=== PATIENT | male | born 1945 | race Caucasian/White ===

== ENCOUNTER 2016-12-08 17:11 | Emergency (ER) | payer OTHER ==
[~2016-12-08] VITALS: Ht 172.7 cm; Wt 114.0 kg
[2016-12-08 17:16] VITALS: TEMP 36.6
[2016-12-08] MEDS ORDERED: SODIUM CHLORIDE 0.9% 1000ML 1,000 ML IV SCH (17:23)
--- NOTE | 2016-12-08 17:47 | EMERGENCY ROOM VISIT NOTE ---
History Report prepared by Isabella: Latrell Kent Under the Supervision of: Dr. Sydney Booker M.D. First contact with patient: 17:23 Chief Complaint: STROKE SYMPTOMS Stated Complaint: STROKE SYMPTOMS Nursing Triage Summary: "I think sometime during the night night I may have had a stroke. I' ve felt perfectly fine since then." Reports slurred speak and left facial droop. Notes today his left eye is watery. Also reports left sided neck pain for 4 months. History of Present Illness The patient is a 71 year old male who presents to the Emergency Room with complaints of constant left sided facial numbness beginning two days prior to arrival. He states he woke up two days ago with left sided facial drooping. The patient associates left eye watering with today's symptoms. He denies weakness in his extremities. The patient also complains of persistent left sided neck pain beginning four months prior to arrival. He states he is scheduled to see his doctor tomorrow for those symptoms. The patient notes it feels like a stiff neck, as if he slept on it wrong. He denies trouble walking. The patient notes he has a history of hypertension. He denies a history of diabetes and heart disease. The patient denies being sick recently. Source of History: patient Onset: two days INVENTORY MANAGER Position: head (left side of face) Quality: numbness Timing: constant Associated Symptoms: + neck pain (left sided) Note: Associated symptoms: left sided facial drooping, left eye watering. Review of Systems See HPI for pertinent positives & negatives. A total of 10 systems reviewed and were otherwise negative. Past Medical & Surgical Medical Problems: (1) Hypertension Family History Patient reports no known family medical history. Social History Smoking Status: Never Smoker Marital Status: Housing Status: lives with significant other Occupation Status: employed Current/Historical Medications Scheduled Aspirin (Aspirin Ec), 81 MG PO DAILY Gupvbdnclsj-Euqlounmprt-Cge C- (Glucosamine 1500 Complex), Unknown Dose PO DAILY Lisinopril (Zestril), 20 MG PO QAM Omeprazole (Prilosec), 40 MG PO DAILY Prednisone (Prednisone), 40 MG PO DAILY Valacyclovir Hcl (Valtrex), 1 GM PO TID Scheduled PRN Ibuprofen (Advil), 2 CAP PO WK PRN for KNEE PAIN Allergies Coded Allergies: No Known Allergies (Unverified , 12/08/16) Physical Exam Vital Signs Date Time Temp Pulse Resp B/P Pulse Ox O2 Delivery O2 Flow Rate FiO2 12/08/16 21:55 71 18 142/87 94 12/08/16 21:17 71 18 142/87 94 Room Air 12/08/16 18:54 84 16 150/93 94 Room Air 12/08/16 18:30 86 18 114/72 94 Room Air 12/08/16 18:05 89 18 112/75 96 Room Air 12/08/16 17:57 94 Room Air 12/08/16 17:35 85 16 108/72 95 Room Air 12/08/16 17:16 36.6 88 16 110/73 94 Room Air Physical Exam Vital signs reviewed. General: Well-appearing male, in no distress. Obese. HEENT: Left facial droop, forehead included. No scleral icterus, PERRLA, neck supple. Atraumatic. Cardiovascular: Regular rate and rhythm, no extra sounds. Pulmonary: Clear to auscultation bilaterally, normal work of breathing. Abdomen: Soft, nontender, nondistended, positive bowel sounds. Musculoskeletal: Atraumatic, no peripheral edema. Neurologic: Patient awake alert and oriented x 3, full strength in all 4 extremities. Cerebellar exam is intact. Negative Romberg. Ambulates without difficulty. Skin: Warm, dry, no rash Medical Decision & Procedures ER Provider Diagnostic Interpretation: X-ray results as stated below per my interpretation and radiologist interpretation. Other radiology results as stated below per my review and radiologist interpretation: CHEST ONE VIEW PORTABLE HISTORY: Stroke symptoms. COMPARISON: None. FINDINGS: No pneumothorax. No pleural effusions. There is marked elevation the left hemidiaphragm. A few linear densities the left lung base consistent with subsegmental atelectasis. The lungs are otherwise clear. The heart is borderline enlarged. Old, healed left clavicle fracture. IMPRESSION: 1. Marked elevation of the left hemidiaphragm. This is likely chronic. Comparison to old studies would be helpful to assess stability. 2. Borderline enlargement of the cardiac silhouette. Electronically signed by: Yuri Dos Santos M.D. 12/08/2016 6:[address] CT DOSE: 687.98 mGy.cm HISTORY: Stroke symptoms. TECHNIQUE: Multiaxial CT images of the head were performed without the use of intravenous contrast. Automated exposure control was utilized for this study. Comparison: None. Findings: The paranasal sinuses and mastoid air cells are clear. The calvarium and skull base are intact. The ventricles and sulci are within normal limits. There is no mass, hematoma, midline shift, or acute infarct. Impression: No acute intracranial abnormality. Electronically signed by: Yuri Dos Santos M.D. 12/08/2016 6:53 PM BILATERAL CAROTID DOPPLER STUDY HISTORY: Left neck pain and HTN, L facial droop COMPARISON: None. TECHNIQUE: Real-time, grayscale, and color Doppler sonography of the carotid arteries was performed. Imaging reviewed in the transverse and longitudinal planes. All measurements were calculated based on NASCET criteria. FINDINGS: Antegrade flow is seen in the bilateral vertebral arteries. The brachial pressures are asymmetric measuring 160/106 and the right and 132/84 on the left. However, the subclavian and velocities are within normal limits. Mild calcified plaque within the bilateral carotid bifurcations. The peak systolic velocity within the right ICA is 48 cm/s. The right systolic ratio is 0.8. The peak systolic velocity within the left ICA is 58 cm/s. The left systolic ratio is 0.6. IMPRESSION: No hemodynamically significant stenosis seen within the carotid arteries. Electronically signed by: Yuri Dos Santos M.D. 12/08/2016 9:34 PM Laboratory Results 12/08/16 17:55 Red Blood Count 4.90, Mean Corpuscular Volume 92.2, Mean Corpuscular Hemoglobin 31.6, Mean Corpuscular Hemoglobin Concent 34.3, Mean Platelet Volume 10.7, Neutrophils (%) (Auto) 57.3, Lymphocytes (%) (Auto) 30.1, Monocytes (%) (Auto) 9.3, Eosinophils (%) (Auto) 2.7, Basophils (%) (Auto) 0.3, Neutrophils # (Auto) 5.22, Lymphocytes # (Auto) 2.75, Monocytes # (Auto) 0.85, Eosinophils # (Auto) 0.25, Basophils # (Auto) 0.03 12/08/16 17:55 Test 12/08/16 17:48 12/08/16 17:55 12/08/16 20:40 Bedside Glucose 115 mg/dl (70-99) White Blood Count 9.13 K/uL (4.8-10.8) Red Blood Count 4.90 M/uL (4.7-6.1) Hemoglobin 15.5 g/dL (14.0-18.0) Hematocrit 45.2 % (42-52) Mean Corpuscular Volume 92.2 fL (80-100) Mean Corpuscular Hemoglobin 31.6 pg (25-34) Mean Corpuscular Hemoglobin Concent 34.3 g/dl (32-36) Platelet Count 148 K/uL (130-400) Mean Platelet Volume 10.7 fL (7.4-10.4) Neutrophils (%) (Auto) 57.3 % Lymphocytes (%) (Auto) 30.1 % Monocytes (%) (Auto) 9.3 % Eosinophils (%) (Auto) 2.7 % Basophils (%) (Auto) 0.3 % Neutrophils # (Auto) 5.22 K/uL (1.4-6.5) Lymphocytes # (Auto) 2.75 K/uL (1.2-3.4) Monocytes # (Auto) 0.85 K/uL (0.11-0.59) Eosinophils # (Auto) 0.25 K/uL (0-0.5) Basophils # (Auto) 0.03 K/uL (0-0.2) RDW Standard Deviation 46.3 fL (36.4-46.3) RDW Coefficient of Variation 13.8 % (11.5-14.5) Immature Granulocyte % (Auto) 0.3 % Immature Granulocyte # (Auto) 0.03 K/uL (0.00-0.02) Prothrombin Time 11.4 SECONDS (9.0-12.0) Prothromb Time International Ratio 1.1 (0.9-1.1) Activated Partial Thromboplast Time 25.6 SECONDS (21.0-31.0) Partial Thromboplastin Ratio 1.0 Anion Gap 10.0 mmol/L (3-11) Est Creatinine Clear Calc Drug Dose 57.0 ml/min Estimated GFR () 54.3 Estimated GFR (Non- 46.8 BUN/Creatinine Ratio 16.2 (10-20) Calcium Level 8.8 mg/dl (8.5-10.1) Total Creatine Kinase 106 U/L (39-308) Creatine Kinase MB 1.3 ng/ml (0.5-3.6) Creatine Kinase MB Ratio 1.2 (0-3.0) Troponin I < 0.015 ng/ml (0-0.045) Lyme Disease IgG Antibody NEG (NEG) Lyme Disease IgM Antibody NEG (NEG) Urine Color YELLOW Urine Appearance CLEAR (CLEAR) Urine pH 6.0 (4.5-7.5) Urine Specific White 1.026 (1.000-1.030) Urine Protein NEG (NEG) Urine Glucose (UA) NEG (NEG) Urine Ketones TRACE (NEG) Urine Occult Blood TRACE (NEG) Urine Nitrite NEG (NEG) Urine Bilirubin NEG (NEG) Urine Urobilinogen NEG (NEG) Urine Leukocyte Esterase NEG (NEG) Urine WBC (Auto) 1-5 /hpf (0-5) Urine RBC (Auto) 0-4 /hpf (0-4) Urine Hyaline Casts (Auto) 1-5 /lpf (0-5) Urine Epithelial Cells (Auto) 5-10 /lpf (0-5) Urine Bacteria (Auto) NEG (NEG) Laboratory results per my review. Medications Administered Medications (Trade) Dose Ordered Sig/Marianela Route Start Time Stop Time Status Last Admin Dose Admin Sodium Chloride (Nss 1000ml) 1,000 ml @ 50 mls/hr Q20H IV 12/08/16 17:23 12/08/16 22:17 DC 12/08/16 17:58 50 MLS/HR Prednisone (PredniSONE TAB) 60 mg NOW STAT PO 12/08/16 20:32 12/08/16 20:34 DC 12/08/16 21:21 60 MG Valacyclovir HCl (Valtrex Tab) 1,000 mg NOW ONCE PO 12/08/16 20:45 12/08/16 20:46 DC 12/08/16 21:21 1,000 MG ECG Indication: other (facial numbness) Rate (beats per minute): 71 Rhythm: normal sinus Findings: nonspecific-ST abn, no acute ischemic change, no ectopy, other (left anterior fascicular block) ED Course 1720: Past medical records reviewed. The patient was evaluated in room B3B. A complete history and physical examination was performed. 1722: Ordered Sodium Chloride 1,000 ml @ 50 mls/hr IV. 2031: Ordered Prednisone 60 mg PO. 2044: Ordered Valtrex Tab 1,000 mg PO. 2150: Upon reevaluation, the patient appeared to have improvement of his symptoms. I discussed findings with him. He verbalized agreement of the treatment plan. The patient was discharged home. Medical Decision Etiologies such as Mix's Palsy, metabolic, infection, hypo/hyperglycemia, electrolyte abnormalities, cardiac sources, intracerebral event, toxicologic, neurologic, as well as others were entertained. This patient was evaluated and appeared to be in no significant distress. IV access was obtained and laboratory work was drawn. The patient was placed on the telemetry monitor and found to be in a normal sinus rhythm. Physical examination is consistent with a Mix's palsy however the patient has complaints of left-sided neck pain and several risk factors. CT scan of the head was performed and is negative for acute pathology. Ultrasound of the carotids reveals no significant stenosis. Lyme titers are negative. Patient was given 60 mg of prednisone, 1000 mg of Valtrex for 1 week. He will follow- up with his physician for reevaluation and return to the ER for worsening of symptoms or any medical concerns. Impression Primary Impression: Mix's palsy Scribe Attestation The scribe's documentation has been prepared under my direction and personally reviewed by me in its entirety. I confirm that the note above accurately reflects all work, treatment, procedures, and medical decision making performed by me. Departure Information Dispostion Home / Self-Care Prescriptions Valacyclovir Hcl (VALTREX) 1 Gm Tab 1 GM PO TID, #21 TAB Prov: Sydney Booker M.D. 12/08/16 Prednisone (Prednisone) 20 Mg Tab 40 MG PO DAILY, #8 TAB Prov: Sydney Booker M.D. 12/08/16 Referrals No Doctor, Assigned (PCP) Forms HOME CARE DOCUMENTATION FORM, IMPORTANT VISIT INFORMATION Patient Instructions My [facility] Additional Instructions Diagnosis: Mix's palsy Use artificial tears every hour while awake. Use the artificial tears ointment at night. Apply piece of tape over the left eyelid at night to help prevent corneal abrasion or ulceration. Prednisone 60 mg daily for 7 days. Valtrex 1000 mg 3 times daily for 7 days. Follow-up with your physician this week for reevaluation. Return to the ER for worsening of symptoms or any medical concerns.
[2016-12-08 17:56] VITALS: Ht 172.7 cm; Wt 114.0 kg
[2016-12-08 17:57] VITALS: O2SAT 94
[2016-12-08 18:09] LABS: BASO % 0.3 %; BASO ABS # 0.03 K/uL (0-0.2); COMPLETE YES; EOS % 2.7 %; HEMATOCRIT 45.2 % (42-52); IG% 0.3 %; LYMPH % 30.1 %; LYMPH ABS # 2.75 K/uL (1.2-3.4); MEAN CELL VOLUME 92.2 fL (80-100); MEAN CORPUSCULAR HEMOGLOBIN 31.6 pg (25-34); MEAN CORPUSCULAR HGB CONC 34.3 g/dl (32-36); MEAN PLATELET VOLUME 10.7 fL (7.4-10.4); MONO % 9.3 %; NEUT % 57.3 %; PLATELET COUNT 148 K/uL (130-400); WHITE BLOOD COUNT 9.13 K/uL (4.8-10.8)
[2016-12-08] MEDS ORDERED: ASPI81TA28 PO (18:11)
[2016-12-08] MEDS ORDERED: PRLSR20 PO (18:11)
[2016-12-08] MEDS ORDERED: GLUC15002 PO (18:11)
[2016-12-08] MEDS ORDERED: IBUP200C14 PO (18:11)
[2016-12-08] MEDS ORDERED: LISI-725 PO (18:11)
--- NOTE | 2016-12-08 18:16 | DIAGNOSTIC IMAGING REPORT ---
CHEST ONE VIEW PORTABLE HISTORY: Stroke symptoms. COMPARISON: None. FINDINGS: No pneumothorax. No pleural effusions. There is marked elevation the left hemidiaphragm. A few linear densities the left lung base consistent with subsegmental atelectasis. The lungs are otherwise clear. The heart is borderline enlarged. Old, healed left clavicle fracture. IMPRESSION: 1. Marked elevation of the left hemidiaphragm. This is likely chronic. Comparison to old studies would be helpful to assess stability. 2. Borderline enlargement of the cardiac silhouette. Electronically signed by: Yuri Dos Santos M.D. 12/08/2016 6:15 PM Dictated Date/Time: 12/08/2016 6:14 PM
[2016-12-08 18:18] LABS: INR 1.1 (0.9-1.1); PROTHROMBIN TIME (PATIENT) 11.4 SECONDS (9.0-12.0)
[2016-12-08 18:26] LABS: BLOOD UREA NITROGEN 24 mg/dl (7-18); BUN/CREATININE RATIO 16.2 (10-20); CALCIUM 8.8 mg/dl (8.5-10.1); CARBON DIOXIDE 25 mmol/L (21-32); CHLORIDE 109 mmol/L (98-107); GLUCOSE 107 mg/dl (70-99); POTASSIUM 4.3 mmol/L (3.5-5.1); SODIUM 144 mmol/L (136-145)
[2016-12-08 18:31] LABS: CKMB/CK RATIO 1.2 (0-3.0)
--- NOTE | 2016-12-08 18:55 | DIAGNOSTIC IMAGING REPORT ---
HEAD CT NONCONTRAST CT DOSE: 687.98 mGy.cm HISTORY: Stroke symptoms. TECHNIQUE: Multiaxial CT images of the head were performed without the use of intravenous contrast. Automated exposure control was utilized for this study. Comparison: None. Findings: The paranasal sinuses and mastoid air cells are clear. The calvarium and skull base are intact. The ventricles and sulci are within normal limits. There is no mass, hematoma, midline shift, or acute infarct. Impression: No acute intracranial abnormality. Electronically signed by: Yuri Dos Santos M.D. 12/08/2016 6:53 PM Dictated Date/Time: 12/08/2016 6:40 PM
[2016-12-08 19:44] LABS: LYME DISEASE AB IGG NEG (NEG); LYME DISEASE AB IGM NEG (NEG)
[2016-12-08] MEDS ORDERED: VALA1TAB31 PO (20:17)
[2016-12-08] MEDS ORDERED: PRED20TA PO (20:17)
[2016-12-08 21:31] LABS: URINE APPEARANCE CLEAR (CLEAR); URINE BILIRUBIN NEG (NEG); URINE COLOR YELLOW; URINE NITRITE NEG (NEG); URINE SPECIFIC GRAVITY 1.026 (1.000-1.030); UROBILINOGEN NEG (NEG); ZZUR CULT IF INDIC CLEAN CATCH NO
[2016-12-08 21:32] LABS: MANUAL MICROSCOPIC REQUIRED? NO; REVIEW REQ? NO
--- NOTE | 2016-12-08 21:36 | DIAGNOSTIC IMAGING REPORT ---
BILATERAL CAROTID DOPPLER STUDY HISTORY: Left neck pain and HTN, L facial droop COMPARISON: None. TECHNIQUE: Real-time, grayscale, and color Doppler sonography of the carotid arteries was performed. Imaging reviewed in the transverse and longitudinal planes. All measurements were calculated based on NASCET criteria. FINDINGS: Antegrade flow is seen in the bilateral vertebral arteries. The brachial pressures are asymmetric measuring 160/106 and the right and 132/84 on the left. However, the subclavian and velocities are within normal limits. Mild calcified plaque within the bilateral carotid bifurcations. The peak systolic velocity within the right ICA is 48 cm/s. The right systolic ratio is 0.8. The peak systolic velocity within the left ICA is 58 cm/s. The left systolic ratio is 0.6. IMPRESSION: No hemodynamically significant stenosis seen within the carotid arteries. Electronically signed by: Yuri Dos Santos M.D. 12/08/2016 9:34 PM Dictated Date/Time: 12/08/2016 9:33 PM
[2016-12-08 21:55] VITALS: BP 142/87; PULSE 71; O2SAT 94
[2017-03-10] MEDS ORDERED: MISCTAB78 PO (11:25)
[2017-03-10] MEDS ORDERED: IBUP-103 PO (11:25)
[2017-03-10] MEDS ORDERED: ASPI325T39 PO (11:25)
== END 2016-12-08 21:56 | disposition home or self-care (01) ==
LOC: C.EDB 17:12
DX: G51.0 Bell's palsy (principal); M54.2 Cervicalgia; I10 Essential (primary) hypertension; Z79.82 Long term (current) use of aspirin

== ENCOUNTER 2017-03-28 11:26 | Emergency (ER) | payer OTHER ==
[~2017-03-28] VITALS: Ht 172.7 cm; Wt 113.0 kg
[~2017-03-28 11:26] MED LIST: ASPI325T39 PO; ASPI81TA28 PO; IBUP-103 PO; LISI-725 PO; MISCTAB78 PO; PRLSR20 PO
[2017-03-28 11:29] VITALS: O2SAT 98; Ht 172.7 cm; Wt 113.0 kg
[2017-03-28] MEDS ORDERED: MECL1TAB40 PO (11:46)
[2017-03-28] MEDS ORDERED: SODIUM CHLORIDE 0.9% 1000ML 1,000 ML IV STA (11:57)
[2017-03-28 12:01] LABS: BASO % 0.5 %; BASO ABS # 0.04 K/uL (0-0.2); COMPLETE YES; EOS % 3.1 %; HEMATOCRIT 45.8 % (42-52); IG% 0.3 %; LYMPH % 31.3 %; LYMPH ABS # 2.41 K/uL (1.2-3.4); MEAN CELL VOLUME 93.1 fL (80-100); MEAN CORPUSCULAR HEMOGLOBIN 32.3 pg (25-34); MEAN CORPUSCULAR HGB CONC 34.7 g/dl (32-36); MEAN PLATELET VOLUME 10.9 fL (7.4-10.4); MONO % 9.4 %; NEUT % 55.4 %; PLATELET COUNT 160 K/uL (130-400); RED BLOOD COUNT 4.92 M/uL (4.7-6.1)
--- NOTE | 2017-03-28 12:06 | EMERGENCY ROOM VISIT NOTE ---
History First contact with patient: 11:44 Chief Complaint: CARDIAC ASSESSMENT Stated Complaint: CARDIAC ASSESSMENT Nursing Triage Summary: svt at [facility] for preop workup, broke to nsr in ambulance with iv start. History of Present Illness The patient is a 71 year old male who presents to the Emergency Room with complaints of supraventricular tachycardia. The patient states that he has had intermittent episodes lasting no more than 5 seconds over the last several months. He states that he feels a pressure sensation, dizziness, lightheadedness and sweaty. He states that he feels his heart pounding in his neck. He states that sometimes he performs carotid massage and the symptoms go away. He states that it has never been caught on EKG. He states that it always resolves itself prior to being seen. Today, the patient was at [facility] when he began to feel the dizziness, lightheadedness and sweatiness. He states that he went to the [facility] after going to [facility] as he had a scheduled appointment for preoperative for knee surgery. He was found to be in supraventricular tachycardia with a rate of 201-202 bpm. The ambulance was contacted. When the IV was inserted, the patient spontaneously returned to a normal sinus rhythm. He has no symptoms at this time. He is in a normal sinus rhythm. He has had a stress test 8-10 years ago. He states that his father of heart disease at around age 60. He has a history of hypertension. Review of Systems A 10 system review of systems was completed with positives and pertinent negatives listed in the HPI. Past Medical/Surgical History Medical Problems: (1) Hypertension Family History Patient reports no known family medical history. Social History Smoking Status: Never Smoker Marital Status: Housing Status: lives with significant other Occupation Status: employed Current/Historical Medications Scheduled Aspirin (Aspirin Ec), 81 MG PO QAM Lisinopril (Zestril), 20 MG PO QAM Metoprolol Tartrate (Lopressor) (Lopressor), 25 MG PO DAILY Misc Natural Products (Osteo Bi-Flex Advanced Do), 2 TAB PO QAM Omeprazole (Prilosec), 40 MG PO QAM Scheduled PRN Meclizine Hcl (Meclizine Hcl), 12.5 MG PO DAILY PRN for VERTIGO Allergies Coded Allergies: No Known Allergies (Unverified , 03/28/17) Physical Exam Vital Signs Date Time Temp Pulse Resp B/P Pulse Ox O2 Delivery O2 Flow Rate FiO2 03/28/17 14:06 36.8 87 28 111/80 95 03/28/17 13:56 87 28 95 03/28/17 13:51 70 25 96 03/28/17 13:46 87 33 95 03/28/17 13:41 75 29 95 03/28/17 13:36 69 31 95 03/28/17 13:31 76 23 111/80 95 03/28/17 13:26 74 26 137/97 96 03/28/17 13:21 67 19 95 03/28/17 13:16 62 18 95 03/28/17 13:16 62 18 95 03/28/17 13:11 76 26 95 03/28/17 13:11 76 26 95 03/28/17 13:06 80 23 96 03/28/17 13:06 80 23 96 03/28/17 13:01 87 119/87 95 03/28/17 13:01 87 26 119/87 95 03/28/17 12:56 87 23 96 03/28/17 12:56 87 23 96 03/28/17 12:51 87 21 94 03/28/17 12:51 87 21 94 03/28/17 12:46 91 29 94 03/28/17 12:46 91 29 94 03/28/17 12:41 90 26 94 03/28/17 12:41 90 26 94 03/28/17 12:36 88 19 94 03/28/17 12:36 88 19 94 03/28/17 12:31 93 23 115/85 95 03/28/17 12:31 93 23 115/85 95 03/28/17 12:27 114/74 03/28/17 12:27 114/74 03/28/17 12:26 180 18 96 03/28/17 12:26 180 18 96 03/28/17 12:21 181 21 96 03/28/17 12:21 181 21 96 03/28/17 12:16 89 17 94 03/28/17 12:16 89 17 94 03/28/17 12:11 84 25 95 03/28/17 12:11 84 25 95 03/28/17 12:06 90 21 95 03/28/17 12:06 93 03/28/17 12:06 90 21 95 03/28/17 12:04 36.8 90 16 122/78 95 Room Air 03/28/17 12:01 94 22 123/76 94 03/28/17 12:01 94 22 123/76 94 03/28/17 11:56 84 16 94 03/28/17 11:56 84 16 94 03/28/17 11:51 86 24 90 03/28/17 11:51 86 24 90 03/28/17 11:46 86 20 94 03/28/17 11:46 86 20 94 03/28/17 11:41 91 20 95 03/28/17 11:41 91 20 95 03/28/17 11:36 80 21 94 03/28/17 11:36 80 21 94 03/28/17 11:31 83 19 122/78 94 03/28/17 11:31 83 19 122/78 94 03/28/17 11:29 95 Room Air 03/28/17 11:29 109/85 03/28/17 11:29 109/85 03/28/17 11:29 98 Room Air 03/28/17 11:29 36.8 90 16 122/78 95 Room Air 03/28/17 11:29 92 Room Air Physical Exam VITALS: Vitals are noted on the nurse's note and reviewed by myself. Vital signs stable. The patient is afebrile. He is not tachycardic, tachypneic or hypoxic. GENERAL: This is a 71-year-old maleno acute distress, nondiaphoretic, well- developed well-nourished. SKIN: The skin was without rashes, erythema, edema, or bruising. There is no tenting of the skin. Capillary reflex less than 2 seconds. HEAD: Normocephalic atraumatic. EARS: External auditory canals clear, tympanic membranes pearly duque without erythema or effusion bilaterally. EYES: Pupils equal round and reactive to light and accommodation. Conjunctivae without injection, sclerae without icterus. Extraocular movements intact. NOSE: Patent, turbinates without inflammation or discharge. MOUTH: Mucous membranes moist. Tonsils are not enlarged. Pharynx without erythema or exudate. Uvula midline. Airway patent. Tongue does not deviate. NECK: Supple without nuchal rigidity. No JVD. HEART: Regular rate and rhythm without murmurs gallops or rubs. LUNGS: Clear to auscultation bilaterally without wheezes, rales or rhonchi. No retractions or accessory muscle use. ABDOMEN: Positive bowel sounds x 4. Soft, nontender, without masses or organomegaly. Holt sign negative. MUSCULOSKELETAL: No muscle atrophy, erythema, or edema noted. Full range of motion without joint tenderness in all extremities. No tenderness to palpation. Normal gait. NEURO: Patient was alert and oriented to person place and time. No focal neurological deficits. Medical Decision & Procedures ER Provider Diagnostic Interpretation: [~ rep ct add3]] CHEST ONE VIEW PORTABLE HISTORY: Cardiac assessment. COMPARISON: Chest 03/10/2017. FINDINGS: No pleural effusions. No pneumothorax. The heart remains mildly enlarged. There is marked elevation the left hemidiaphragm, unchanged. No evidence for pulmonary edema. There is an old left clavicle fracture. IMPRESSION: 1. No significant change compared to the prior study. 2. Marked elevation of the left hemidiaphragm. 3. Stable mild cardiomegaly. Laboratory Results 03/28/17 11:15 Red Blood Count 4.92, Mean Corpuscular Volume 93.1, Mean Corpuscular Hemoglobin 32.3, Mean Corpuscular Hemoglobin Concent 34.7, Mean Platelet Volume 10.9, Neutrophils (%) (Auto) 55.4, Lymphocytes (%) (Auto) 31.3, Monocytes (%) (Auto) 9.4, Eosinophils (%) (Auto) 3.1, Basophils (%) (Auto) 0.5, Neutrophils # (Auto) 4.27, Lymphocytes # (Auto) 2.41, Monocytes # (Auto) 0.72, Eosinophils # (Auto) 0.24, Basophils # (Auto) 0.04 03/28/17 11:15 Test 03/28/17 11:15 03/28/17 11:49 White Blood Count 7.70 K/uL (4.8-10.8) Red Blood Count 4.92 M/uL (4.7-6.1) Hemoglobin 15.9 g/dL (14.0-18.0) Hematocrit 45.8 % (42-52) Mean Corpuscular Volume 93.1 fL (80-100) Mean Corpuscular Hemoglobin 32.3 pg (25-34) Mean Corpuscular Hemoglobin Concent 34.7 g/dl (32-36) Platelet Count 160 K/uL (130-400) Mean Platelet Volume 10.9 fL (7.4-10.4) Neutrophils (%) (Auto) 55.4 % Lymphocytes (%) (Auto) 31.3 % Monocytes (%) (Auto) 9.4 % Eosinophils (%) (Auto) 3.1 % Basophils (%) (Auto) 0.5 % Neutrophils # (Auto) 4.27 K/uL (1.4-6.5) Lymphocytes # (Auto) 2.41 K/uL (1.2-3.4) Monocytes # (Auto) 0.72 K/uL (0.11-0.59) Eosinophils # (Auto) 0.24 K/uL (0-0.5) Basophils # (Auto) 0.04 K/uL (0-0.2) RDW Standard Deviation 45.9 fL (36.4-46.3) RDW Coefficient of Variation 13.5 % (11.5-14.5) Immature Granulocyte % (Auto) 0.3 % Immature Granulocyte # (Auto) 0.02 K/uL (0.00-0.02) Prothrombin Time 11.0 SECONDS (9.0-12.0) Prothromb Time International Ratio 1.0 (0.9-1.1) Activated Partial Thromboplast Time 26.0 SECONDS (21.0-31.0) Partial Thromboplastin Ratio 1.0 Anion Gap 9.0 mmol/L (3-11) Est Creatinine Clear Calc Drug Dose 60.7 ml/min Estimated GFR () 59.0 Estimated GFR (Non- 50.9 BUN/Creatinine Ratio 14.6 (10-20) Calcium Level 8.6 mg/dl (8.5-10.1) Magnesium Level 2.2 mg/dl (1.8-2.4) Total Bilirubin 0.9 mg/dl (0.2-1) Aspartate Amino Transf (AST/SGOT) 59 U/L (15-37) Alanine Aminotransferase (ALT/SGPT) 59 U/L (12-78) Alkaline Phosphatase 59 U/L (45-117) Total Protein 7.6 gm/dl (6.4-8.2) Albumin 3.5 gm/dl (3.4-5.0) Globulin 4.1 gm/dl (2.5-4.0) Albumin/Globulin Ratio 0.9 (0.9-2) Thyroid Stimulating Hormone (TSH) 4.180 uIu/ml (0.300-4.500) Bedside Troponin I 0.000 ng/ml (0-0.045) Medications Administered Medications (Trade) Dose Ordered Sig/Marianela Route Start Time Stop Time Status Last Admin Dose Admin Sodium Chloride (Nss 1000ml) 1,000 ml @ 125 mls/hr Q8H STAT IV 03/28/17 11:57 03/28/17 15:02 DC 03/28/17 12:44 125 MLS/HR Procedure The patient was monitored on a house visitor. They maintained a normal sinus rhythm without ectopy. ECG Indication: palpitations Rate (beats per minute): 90 Rhythm: sinus with SA Findings: LAFB, no acute ischemic change Change: no significant change ED Course The patient was seen and examined. Previous visits were reviewed. The patient does not have a fever or leukocytosis. He does not have any significant electrolyte abnormality. AST is 59. Troponin was not elevated. TSH is within normal limits. INR is 1.0. EKG did not reveal any acute arrhythmia or ischemia. Outpatient EKG from the [place] performed just prior to arrival reveals a narrow complex tachycardia, likely supraventricular tachycardia, with a rate of 202 bpm. The patient had spontaneously converted to a normal sinus rhythm when the IV was started by EMS. The patient states he has these episodes quite frequently but they never last more than 5 seconds. I discussed the case with Dr. Sharma. He suggested trying a low-dose beta renetta. The patient was placed on metoprolol 25 mg daily. He recommends a follow-up with barrel racer. An appointment was made for the patient with Dr. Navarro prior to his scheduled knee surgery. Dr. Sharma also suggested giving the patient a copy of the EKG with the supraventricular tachycardia. I did forget to give this to the patient prior to discharge. I asked the secretaries to ensure that the patient gets a copy of this EKG. I also asked them to ensure that the EKG from the [place] would be scanned into the patient's medical record. The patient does not have chest pain and has never had chest pain with these episodes. The patient seems to be asymptomatic when he does not have the paroxysmal SVT. The patient should follow-up with cardiology as scheduled. He should return to the ER sooner. The patient was also seen and examined by Dr. Parker who agrees with the assessment and treatment plan. Medical Decision DIFFERENTIAL DIAGNOSIS: Aortic dissection, myocarditis, pericarditis, cervical disc disease, costochondritis, herpes zoster, rib fracture, pleuritis, pneumonia , pulmonary embolus, tension pneumothorax, anxiety disorder, somatoform disorder , choledocholithiasis, status, esophagitis, esophageal spasm, esophageal reflux , esophageal rupture, pancreatitis, peptic ulcer disease, cardiac ischemia, ST elevation MS, acute coronary syndrome, arrhythmia, coronary artery vasospasm. vavular heart disease, coronary artery disease, among others. Impression Primary Impression: Paroxysmal SVT (supraventricular tachycardia) Departure Information Dispostion Home / Self-Care Condition GOOD Prescriptions Metoprolol Tartrate (Lopressor) (Lopressor) 25 Mg Tab 25 MG PO DAILY for 30 Days, #30 TAB Prov: Glory Guerrier PA-C 03/28/17 Referrals No Doctor, Assigned (PCP) Reyes Navarro MD Patient Instructions [facility], Treatment for Supraventricular Tachycardia SVT, Understanding Supraventricular Tachycardia SVT Additional Instructions Follow up with cardiology as scheduled Metoprolol 25 mg daily Recheck with your family doctor next week. Try applying ice to the face or bearing down if the symptoms return Return if symptoms persist, chest pain or generalized worsening symptoms
--- NOTE | 2017-03-28 12:21 | DIAGNOSTIC IMAGING REPORT ---
CHEST ONE VIEW PORTABLE HISTORY: Cardiac assessment. COMPARISON: Chest 03/10/2017. FINDINGS: No pleural effusions. No pneumothorax. The heart remains mildly enlarged. There is marked elevation the left hemidiaphragm, unchanged. No evidence for pulmonary edema. There is an old left clavicle fracture. IMPRESSION: 1. No significant change compared to the prior study. 2. Marked elevation of the left hemidiaphragm. 3. Stable mild cardiomegaly. Electronically signed by: Yuri Dos Santos M.D. 03/28/2017 12:20 PM Dictated Date/Time: 03/28/2017 12:18 PM
[2017-03-28 12:50] LABS: ALB/GLOB RATIO 0.9 (0.9-2); BUN/CREATININE RATIO 14.6 (10-20); CALCIUM 8.6 mg/dl (8.5-10.1); CREATININE 1.4 mg/dl (0.60-1.40); THYROID STIMULATING HORMONE 4.18 uIu/ml (0.300-4.500)
[2017-03-28 12:51] LABS: POTASSIUM 4.4 mmol/L (3.5-5.1)
[2017-03-28 12:57] LABS: MAGNESIUM 2.2 mg/dl (1.8-2.4)
[2017-03-28] MEDS ORDERED: METO25TA56 PO (13:39)
[2017-03-28 14:06] VITALS: BP 111/80; PULSE 87; TEMP 36.8; O2SAT 95
== END 2017-03-28 14:07 | disposition home or self-care (01) ==
LOC: EDBD 11:26 → C.EDC 11:27
DX: I47.1 Supraventricular tachycardia (principal); R42 Dizziness and giddiness; I10 Essential (primary) hypertension; Z79.82 Long term (current) use of aspirin

== ENCOUNTER 2017-04-11 08:21 | Inpatient (IN) | payer OTHER ==
--- NOTE | 2017-03-10 10:58 | HISTORY & PHYSICAL EXAMINATION ---
DATE OF ADMISSION: 04/11/2017 SUBJECTIVE CHIEF COMPLAINT: Left knee pain. HISTORY OF PRESENT ILLNESS: The patient is a 71-year-old male who is here for left knee pain. He states that the symptoms have been chronic and nontraumatic. He describes the pain as aching, sharp and throbbing. He has tried cortisone injections, viscosupplementation, anti-inflammatories and physical therapy with no relief. He would like to proceed with a left total knee arthroplasty. PAST MEDICAL HISTORY: Significant for hypertension, shortness of breath with walking up hills and GERD. PAST SURGICAL HISTORY: Left knee scope. SOCIAL HISTORY: He denies alcohol use. He denies smoking or tobacco use. He denies IV drug use. He lives in a 2-lincoln home. He is currently retired. FAMILY HISTORY: Father has a history of heart disease. ALLERGIES: No known drug allergies. MEDICATIONS: Aspirin 81 mg once a day, omeprazole 20 mg twice a day, lisinopril 20 mg once a day, Osteo Bi-Flex. REVIEW OF SYSTEMS: He denies headache, fevers, chills, double vision, blurry vision, sore throat, cough, chest pain, nausea, vomiting, diarrhea, constipation, numbness, tingling, tired, urinary problems, thoughts to harm himself or harm to others, depression. He is positive for joint pain and joint stiffness of the left knee. OBJECTIVE: GENERAL APPEARANCE: The patient is a 71-year-old male who is sitting in no acute distress. He is well dressed, well nourished. He is awake, alert and oriented x3. VITAL SIGNS: He is 5 feet 8 inches tall, 247 pounds, blood pressure 138/80. HEENT: Normocephalic, atraumatic. Extraocular movements are intact. PERRLA. Mucosa was moist. No septal deviation. NECK: Supple, no lymphadenopathy, no JVD, no thyromegaly. HEART: Regular rate and rhythm with no murmurs or gallops. LUNGS: Clear to auscultation. No wheezing or rhonchi. ABDOMEN: Soft, nontender, nondistended. Normal bowel sounds, no hepatosplenomegaly. EXTREMITIES: Paying particular attention to the left knee, he is able to actively extend to 0 degrees and actively flex to 110 degrees. His ligaments are intact. He has negative anterior drawer, negative posterior drawer, negative Olga's. Negative valgus and varus stress test. He has diffuse pain over the knee, more particularly to the medial joint line. IMAGING: X-ray of the knee shows medial joint line narrowing, periarticular osteophyte formation and subchondral sclerosis. IMPRESSION: Degenerative joint disease of the left knee. PLAN: The patient is scheduled for a left total knee arthroplasty. He has failed conservative therapies of cortisone injections, viscosupplementation, nonsteroidal anti-inflammatories and physical therapy. He would like to proceed with a left total knee arthroplasty. Risks and benefits to surgery were discussed and included but not limited to blood loss, blood vessel damage, nerve damage, failure to relieve pain, DVT, decrease in range of motion and anesthesia risks and wishes to proceed. All questions were answered to his satisfaction. His DVT prophylaxis will be aspirin 81 mg b.i.d. Discharge will be home with home health. He has postop appointment on April 24 at 8:30 a.m. MARTÍN
[2017-03-10 11:27] VITALS: BMI 37.0
--- NOTE | 2017-03-10 12:08 | PAT Medication Instructions ---
Service Date March 10, 2017. Current Home Medication List Aspirin (Aspirin Ec), 81 MG PO QAM Aspirin (Aspirin Ec), 650 MG PO PRN Ibuprofen Tab (Advil), 400 MG PO PRN Lisinopril (Zestril), 20 MG PO QAM Misc Natural Products (Osteo Bi-Flex Advanced Do), 2 TAB PO QAM Omeprazole (Prilosec), 40 MG PO QAM Medication Instructions For Your Scheduled Surgery Aspirin (Aspirin Ec), 650 MG PO PRN (not taking currently) Ibuprofen Tab (Advil), 400 MG PO PRN (not taking currently) - Hold the following medications 7 days prior to surgery: Misc Natural Products (Osteo Bi-Flex Advanced Do), 2 TAB PO QAM - Hold the following medications the morning of surgery: Lisinopril (Zestril), 20 MG PO QAM - Take the following medications the morning of surgery with a sip of water: Omeprazole (Prilosec), 40 MG PO QAM Aspirin (Aspirin Ec), 81 MG PO QAM : If you have any questions please call us at [phone] or [phone] ( [place]) or [phone]
--- NOTE | 2017-03-10 12:33 | DIAGNOSTIC IMAGING REPORT ---
CHEST 2 VIEWS ROUTINE CLINICAL HISTORY: Preoperative evaluation. COMPARISON STUDY: Chest radiograph December 08, 2016. FINDINGS: Marked elevation of the left hemidiaphragm is unchanged since exam of December 08, 2016. Left lower lobe opacity favors atelectasis. There is no evidence of pulmonary edema. No pneumothorax or pleural effusion is present. There are old right rib fractures. Cardiac size is at upper limits of normal. There is an old fracture of the midshaft of the left clavicle. IMPRESSION: 1. No acute cardiopulmonary findings. 2. Stable marked elevation of the left hemidiaphragm. 3. Borderline cardiomegaly. Electronically signed by: Lv Barrett M.D. 03/10/2017 12:32 PM Dictated Date/Time: 03/10/2017 12:30 PM
[2017-03-10 12:59] LABS: BASO % 0.3 %; BASO ABS # 0.03 K/uL (0-0.2); COMPLETE YES; HEMATOCRIT 48.5 % (42-52); IG% 0.3 %; LYMPH % 28.8 %; LYMPH ABS # 2.79 K/uL (1.2-3.4); MEAN CELL VOLUME 95.3 fL (80-100); MEAN CORPUSCULAR HEMOGLOBIN 32.4 pg (25-34); MEAN PLATELET VOLUME 11.4 fL (7.4-10.4); MONO % 9.6 %; PLATELET COUNT 171 K/uL (130-400); RED BLOOD COUNT 5.09 M/uL (4.7-6.1); WHITE BLOOD COUNT 9.68 K/uL (4.8-10.8)
[2017-03-10 13:04] LABS: URINE APPEARANCE CLEAR (CLEAR); URINE BILIRUBIN NEG (NEG); URINE COLOR DK YELLOW; URINE NITRITE NEG (NEG); URINE PH 5.5 (4.5-7.5); URINE SPECIFIC GRAVITY 1.022 (1.000-1.030); UROBILINOGEN NEG (NEG)
[2017-03-10 13:10] LABS: MANUAL MICROSCOPIC REQUIRED? NO; REVIEW REQ? YES
[2017-03-10 13:15] LABS: URINE MUCUS PRESENT (NONE PRSENT)
[2017-03-10 13:15] LABS: ESTIMATED AVERAGE GLUCOSE 114 mg/dl; HA1C FLAG Normal (Normal); INR 1.1 (0.9-1.1); PROTHROMBIN TIME (PATIENT) 11.4 SECONDS (9.0-12.0)
[2017-03-10 14:37] LABS: CREATININE 1.3 mg/dl (0.60-1.40); POTASSIUM 4.8 mmol/L (3.5-5.1)
[2017-03-10 14:44] LABS: CALCIUM 9.6 mg/dl (8.5-10.1)
[~2017-04-11] VITALS: Ht 172.7 cm; Wt 111.7 kg
[2017-04-11] VITALS (8 sets, daily range): BP systolic 100–151; BP diastolic 63–96; PULSE 69–90; TEMP 36.4–36.6; O2SAT 94–97; Ht 172.7 cm; Wt 111.7 kg
[2017-04-11] MEDS: TRANEXAMIC ACID INJ 1,000 MG in SODIUM CHLORIDE 0.9% 100ML 100 ML IV SCH ×2 (06:30→11:18)
[~2017-04-11 08:21] MED LIST changes: +ACETAMINOPHEN 500 MG TAB PO SCH; -ASPI325T39 PO; +CEFAZOLIN 2000 MG/60 ML D5W 60 ML IV SCH; +CeleBREX 200 MG CAP PO SCH; +DEXAMETHASONE 4 MG TAB PO SCH; +FAMOTIDINE 20 MG TAB PO SCH; +GABAPENTIN 300 MG CAP PO SCH; -IBUP-103 PO; +LACTATED RINGER'S 1000ML 1,000 ML IV SCH; +LACTATED RINGER'S 1000ML 500 ML IV ONE; +LACTATED RINGER'S 1000ML IV SCH; +MECL1TAB40 PO; +METO25TA56 PO; +METOCLOPRAMIDE HCL 10 MG TAB PO SCH; +ROPIVACAINE 5MG/ML 30 ML 150 MG, BUPIVACAINE/EPINEPHR 0.5% MPF 30 ML, KETOROLAC TROMETH... INFIL SCH
[2017-04-11] MEDS ORDERED: BUPIVACAINE 0.25% 30 ML VIAL ONE (08:23)
[2017-04-11] MEDS ORDERED: BUPIVACAINE 0.5 % 5 MG/1 ML PF 10ML VIAL ONE (08:23)
[2017-04-11] MEDS ORDERED: ONDANSETRON INJ 2 MG/ML 2 ML VIAL ONE (09:15)
[2017-04-11] MEDS ORDERED: PROPOFOL IV EMULSION 10 MG/ML 20 ML VIAL IV ONE (09:15)
[2017-04-11] MEDS ORDERED: MIDAZOLAM HCL 1 MG/ML 2ML VIAL ONE ×2 (09:16)
[2017-04-11] MEDS ORDERED: FENTANYL CITRATE INJ 50 MCG/1 ML 2 ML VIAL ONE (09:16)
--- NOTE | 2017-04-11 10:09 | History & Physical Bridge Note ---
H&P Re-Evaluation Bridge Note: I have examined the patient, reviewed the History & Physical and in the interval since the performance of the History & Physical I have noted the following changes of clinical significance: No changes noted
[2017-04-11] MEDS ORDERED: ORTHO JOINT ANESTHETIC ONE (10:42)
[2017-04-11] MEDS ORDERED: BACITRACIN 50000 UNIT VIAL ONE (10:43)
[2017-04-11] MEDS ORDERED: POVIDONE-IODINE OP SOLN 30 ML BTL ONE (10:43)
[2017-04-11] MEDS ORDERED: LACTATED RINGER'S 1000ML 1,000 ML IV PRN (11:02)
[2017-04-11] MEDS ORDERED: ONDANSETRON INJ 2 MG/ML 2 ML VIAL IV PRN ×2 (11:15→13:15)
[2017-04-11] MEDS ORDERED: FENTANYL CITRATE INJ 50 MCG/1 ML 2 ML VIAL IV PRN (11:15)
[2017-04-11] MEDS ORDERED: PHENYLEPHRINE 100MCG/ML 5ML SYR ONE (11:45)
[2017-04-11] MEDS ORDERED: EpHEDrine SULFATE 50MG/5ML SYR ONE (11:55)
--- NOTE | 2017-04-11 12:47 | [facility] Post Operative Brief Note ---
Immediate Operative Summary Operative Date Apr 11, 2017. Pre-Operative Diagnosis Left knee degenerative joint disease Post-Operative Diagnosis Left knee degenerative joint disease Procedure(s) Performed Left Total Knee Arthroplasty Surgeon Dr. Laron Beckett Mud Engineer Surgeon(s) Rush Nieves PA-C Estimated Blood Loss 20mL Findings above Specimens Specimen A. Left knee bone and tissue Drains 2 hemovac Anesthesia spinal Complication(s) None Disposition Recovery Room / PACU
[2017-04-11] MEDS ORDERED: MoRPHine SULFATE 2 MG/ML CARP IV PRN ×2 (13:15→15:15)
[2017-04-11] MEDS ORDERED: ALUMINUM/MAGNESIUM/SIMETH (MAALOX MAX) 30 ML UDC PO PRN (13:15)
[2017-04-11] MEDS ORDERED: BISACODYL 10 MG SUPP PR PRN (13:15)
[2017-04-11] MEDS ORDERED: MAGNESIUM HYDROXIDE SUSP 30 ML UDC PO PRN (13:15)
--- NOTE | 2017-04-11 13:48 | DIAGNOSTIC IMAGING REPORT ---
LEFT KNEE 1 OR 2 VIEWS ROUTINE CLINICAL HISTORY: Status post total left knee arthroplasty. COMPARISON: None FINDINGS: Alignment of the total left knee arthroplasty is anatomic. There is no fracture. There is an indeterminate 7 mm radiodensity that projects posterior to the patella on lateral projection. This is not evident on AP projection likely due to overlying hardware. Drains and skin adia are present. IMPRESSION: 1. Status post total left knee arthroplasty. No periprosthetic fracture. Hardware intact. 2. 7 mm radiodensity that projects posterior to the patella on lateral projection. This finding is of uncertain etiology. Electronically signed by: Lv Barrett M.D. 04/11/2017 1:47 PM Dictated Date/Time: 04/11/2017 1:41 PM
--- NOTE | 2017-04-11 14:10 | Anesthesiology Progress Note ---
Anesthesia Post Op Note Date & Time Apr 11, 2017 at 14:10 Vital Signs Pain Intensity: 0 Vital Signs Past 12 Hours Date Time Temp Pulse Resp B/P (MAP) Pulse Ox O2 Delivery O2 Flow Rate FiO2 04/11/17 13:36 62 14 97 04/11/17 13:36 62 14 04/11/17 13:32 96/54 04/11/17 13:31 66 19 97 04/11/17 13:31 66 19 04/11/17 13:27 96/62 04/11/17 13:26 69 17 04/11/17 13:26 70 17 99 04/11/17 13:22 95/59 04/11/17 13:21 65 26 99 04/11/17 13:21 65 26 04/11/17 13:18 91/64 04/11/17 13:16 36.8 62 12 91/64 99 Mask 10 04/11/17 10:40 36.5 87 18 150/96 94 Room Air Notes Mental Status: alert / awake / arousable, participated in evaluation Pt Amnestic to Procedure: Yes Nausea / Vomiting: adequately controlled Pain: adequately controlled Airway Patency, RR, SpO2: stable & adequate BP & HR: stable & adequate Hydration State: stable & adequate Neuraxial Anesthesia: was administered, sensory block is resolving Anesthetic Complications: no major complications apparent Pt doing well.
[2017-04-11] MEDS ORDERED: MoRPHine SULFATE 4 MG/ML 1 ML CARP\\VIAL IV PRN (15:15)
[2017-04-11] MEDS ORDERED: MoRPHine SULFATE 10 MG/ML CARP/VIAL IV PRN (15:15)
[2017-04-11] MEDS: D5W AND 1/2NSS + 20MEQ KCL 1,000 ML IV SCH (15:18)
[2017-04-11] MEDS: ACETAMINOPHEN 500 MG TAB PO SCH ×2 (15:44→22:11)
[2017-04-11] MEDS: KETOROLAC TROMETHAMINE 15 MG/ML VIAL IV. SCH ×2 (15:44→22:10)
[2017-04-11] MEDS: FERROUS GLUCONATE 324 MG TAB PO SCH (17:55)
[2017-04-11] MEDS: CEFAZOLIN IV 2,000 MG in DEXTROSE 5% 50ML 50 ML IV SCH (19:42)
[2017-04-11] MEDS: OXYCODONE HCL 10 MG TABCR (OXYCONTIN) PO SCH (20:45)
[2017-04-11] MEDS: ASPIRIN 81 MG ECTAB PO SCH (20:45)
[2017-04-11] MEDS: DOCUSATE SODIUM 100 MG CAP PO SCH (20:45)
[2017-04-11] MEDS: SENNA 8.6 MG TAB PO SCH (20:45)
--- NOTE | 2017-04-11 22:17 | OPERATIVE REPORT ---
DATE OF OPERATION: 04/11/2017 PREOPERATIVE DIAGNOSIS: Left knee degenerative joint disease. POSTOPERATIVE DIAGNOSIS: Same. PROCEDURE: Left total knee arthroplasty. SURGEON: Dr. Beckett. BREAD DOUGH MIXER: BLADIMIR Singletary, who was necessary for assistance through the procedure with positioning, prepping, draping, retraction and closure. ANESTHESIA: Spinal with adductor canal block. SPECIMEN: Bone and tissue. DRAINS: Two Hemovac. COMPLICATIONS: None. IMPLANTS: [employer] version II femur 5, tibia 5, poly 9, patella 35 oval. INDICATIONS: The patient is a 71-year-old male with longstanding degenerative joint disease of the left knee. He is bone on bone in the medial compartment. He has failed conservative measures including injection, anti-inflammatories and rehab. Failing conservative measures, he wished to proceed with left total knee arthroplasty. Risks, benefits, and alternatives of surgery including but not limited to infection, DVT, pain, stiffness, need for urgent surgery, failure to relieve all symptoms, damage to blood vessels, damage to nerves, risks of anesthesia were discussed with the patient and he wished to proceed. DESCRIPTION OF PROCEDURE: The patient was identified, laterality was confirmed and marked. He received a preoperative antibiotic as well as a spinal and adductor canal block. A well-padded tourniquet was placed on the limb and limb was then prepped and draped in usual sterile manner with ChloraPrep. Limb was exsanguinated and tourniquet was inflated. I made a longitudinal incision on the anterior aspect of the knee, sharply incising the skin, utilizing Bovie electrocautery to achieve hemostasis. I made a medial parapatellar arthrotomy, mobilized the patella laterally. I excised the anterior horns of the medial and lateral meniscus. I then pinned into place patient-matched distal femoral cutting guide, made my anterior, posterior and chamfer cuts. I then removed the cruciates and remaining portions of the meniscus. I then pinned in place the tibial cutting guide, made my tibial resection. I then sized and pinned into place a size 5 tibia and then cut for the post. I then placed the trial femur into position and reamed for the trochlear component and then I sequentially trialed with a 9 mm poly. We had good range of motion, good soft tissue balancing with a 9 mm poly. I then prepared the patella with a freehand cut and sized and drilled for a 35 oval patella. We had good tracking of the patella, no lateral release was needed. All the trial components were removed. Wound was thoroughly irrigated. Deep tissues were anesthetized with Orthomix solution and then with Simplex HV gent cement, I cemented my definitive components. This was a [employer] Journey version II femur 5, tibia 5, poly 9, patella 35 oval. Wound was again thoroughly irrigated. Betadine soak was performed. A deep drain was placed. Arthrotomy was closed with interrupted #1 Vicryl sutures, subcutaneous tissue with interrupted 2-0 Vicryl suture and skin with adia. Sterile dressing was applied. All needle and sponge counts were correct at the end of the procedure. The patient was transferred to the PACU in stable condition without apparent complication. I attest to the content of the Intraoperative Record and any orders documented therein. Any exception s are noted below.
[2017-04-12] MEDS: D5W AND 1/2NSS + 20MEQ KCL 1,000 ML IV SCH ×2 (01:32→11:42)
[2017-04-12] MEDS: KETOROLAC TROMETHAMINE 15 MG/ML VIAL IV. SCH ×2 (03:49→10:05)
[2017-04-12] MEDS: CEFAZOLIN IV 2,000 MG in DEXTROSE 5% 50ML 50 ML IV SCH (03:49)
[2017-04-12 04:34] VITALS: BP 110/67; PULSE 63; TEMP 36.4; O2SAT 94
[2017-04-12] MEDS: ACETAMINOPHEN 500 MG TAB PO SCH ×3 (05:55→21:20)
[2017-04-12 06:04] LABS: HEMATOCRIT 40.5 % (42-52); MEAN CELL VOLUME 92.9 fL (80-100); MEAN CORPUSCULAR HEMOGLOBIN 31.4 pg (25-34); MEAN CORPUSCULAR HGB CONC 33.8 g/dl (32-36); PLATELET COUNT 139 K/uL (130-400); RED BLOOD COUNT 4.36 M/uL (4.7-6.1); WHITE BLOOD COUNT 16.37 K/uL (4.8-10.8)
[2017-04-12 06:39] LABS: BUN/CREATININE RATIO 17.7 (10-20); CALCIUM 7.9 mg/dl (8.5-10.1); CREATININE 1.2 mg/dl (0.60-1.40); POTASSIUM 4.8 mmol/L (3.5-5.1)
[2017-04-12 06:57] VITALS: BP 115/69; PULSE 63; TEMP 36.5; O2SAT 94
[2017-04-12] MEDS: ASPIRIN 81 MG ECTAB PO SCH ×2 (08:54→21:21)
[2017-04-12] MEDS: METOPROLOL TARTRATE 25 MG TAB PO SCH (08:54)
[2017-04-12] MEDS: LISINOPRIL 20 MG TAB PO SCH (08:54)
[2017-04-12] MEDS: DOCUSATE SODIUM 100 MG CAP PO SCH ×2 (08:54→21:21)
[2017-04-12] MEDS: OXYCODONE HCL 10 MG TABCR (OXYCONTIN) PO SCH ×2 (08:54→21:24)
[2017-04-12] MEDS: MULTIVITAMIN TAB PO SCH (08:55)
[2017-04-12] MEDS: PANTOprazole SOD 40 MG TAB PO SCH (08:55)
[2017-04-12] MEDS: FERROUS GLUCONATE 324 MG TAB PO SCH ×3 (08:55→18:00)
--- NOTE | 2017-04-12 10:02 | Orthopedic Progress Note ---
Orthopedic Progress Note Date of Service Apr 12, 2017. Subjective Post OP Day: 1 Reports: feeling well, pain controlled w PO medications, Denies: complaints, chest pain, SOB, nausea / vomiting, light headedness, calf pain Objective calves soft nontender, N/V intact, capillary refill less than 2 sec., dressing C /D/I, A&O x3, toes mobile Date Time Temp Pulse Resp B/P (MAP) Pulse Ox O2 Delivery O2 Flow Rate FiO2 04/12/17 07:40 Room Air 04/12/17 06:57 36.5 63 16 115/69 (84) 94 Room Air 04/12/17 04:34 36.4 63 16 110/67 (81) 94 Room Air 04/11/17 23:21 36.6 69 18 100/63 (75) 95 Nasal Cannula 1.0 04/11/17 19:34 36.6 90 18 120/71 (87) 96 Nasal Cannula 2.0 04/11/17 19:30 Nasal Cannula 2.0 04/11/17 17:30 36.6 70 18 121/79 (93) 96 Nasal Cannula 2.0 04/11/17 16:28 36.6 84 18 136/82 (100) 95 Nasal Cannula 2.0 04/11/17 15:30 36.5 70 18 132/80 (97) 97 Nasal Cannula 2.0 04/11/17 15:00 36.4 73 18 151/83 (105) 95 Nasal Cannula 2.0 04/11/17 14:30 36.6 72 16 121/78 (92) 97 Nasal Cannula 2.0 04/11/17 14:30 97 Nasal Cannula 2.0 04/11/17 14:30 97 Nasal Cannula 2.0 04/11/17 14:12 68 16 04/11/17 14:12 68 16 92/62 97 04/11/17 14:10 37.2 68 16 92/62 96 Nasal Cannula 2 04/11/17 14:08 98/57 04/11/17 14:07 69 13 04/11/17 14:07 76 13 97 04/11/17 14:03 97/50 04/11/17 14:02 68 18 96 04/11/17 14:02 68 18 04/11/17 13:57 65 9 04/11/17 13:57 64 9 102/65 96 04/11/17 13:53 86/52 04/11/17 13:52 66 16 97 04/11/17 13:52 65 16 04/11/17 13:48 103/63 04/11/17 13:47 65 20 04/11/17 13:47 64 20 97 04/11/17 13:44 95/57 04/11/17 13:42 69 17 04/11/17 13:42 65 17 97 04/11/17 13:37 63 11 04/11/17 13:37 62 11 96/65 97 04/11/17 13:36 62 14 97 04/11/17 13:36 62 14 04/11/17 13:32 96/54 04/11/17 13:31 66 19 97 04/11/17 13:31 66 19 04/11/17 13:27 96/62 04/11/17 13:26 69 17 04/11/17 13:26 70 17 99 04/11/17 13:22 95/59 04/11/17 13:21 65 26 99 04/11/17 13:21 65 26 04/11/17 13:18 91/64 04/11/17 13:16 36.8 62 12 91/64 99 Mask 10 04/11/17 10:40 36.5 87 18 150/96 94 Room Air Laboratory Results 24 Hours: Test 04/12/17 05:35 Hematocrit 40.5 % Hemoglobin 13.7 g/dL Assessment & Plan Assessment: POD #1, LEFT TKA Plan: PT/ OT DVT PROPH- ASA D/C PLANNING- HOME W HH Inhouse Planning Pain Management: Oxycontin, Morphine, PO Tylenol, Oxy IR DVT Prophylaxis: TEDs, SCDs, ASA Discharge Planning Discharge Planning: home with home health Pain Management: Oxycontin, PO Tylenol, Oxy IR DVT Prophylaxis: TEDs, ASA Therapy: Physical Therapy, Occupational Therapy
[2017-04-12 11:05] VITALS: BP 129/79; PULSE 63; TEMP 36.3; O2SAT 93
[2017-04-12 15:14] VITALS: BP 148/79; PULSE 72; TEMP 36.5; O2SAT 94
[2017-04-12 16:00] VITALS: O2SAT 94
[2017-04-12] MEDS ORDERED: NURSING VERBAL MED ORDER ONE (19:30)
[2017-04-12] MEDS ORDERED: CALCIUM CARBONATE 500 MG CHEWABLE PO PRN ×2 (19:45)
[2017-04-12] MEDS: SENNA 8.6 MG TAB PO SCH (21:26)
[2017-04-12 23:01] VITALS: BP 120/76; PULSE 70; TEMP 36.6; O2SAT 94
[2017-04-13] MEDS: ACETAMINOPHEN 500 MG TAB PO SCH (06:00)
[2017-04-13 06:25] VITALS: BP 119/69; PULSE 75; TEMP 36.6; O2SAT 95
[2017-04-13] MEDS ORDERED: CEFAZOLIN IV 2,000 MG in DEXTROSE 5% 50ML 50 ML IV ONE (08:15)
[2017-04-13] MEDS: FERROUS GLUCONATE 324 MG TAB PO SCH (08:16)
[2017-04-13] MEDS: METOPROLOL TARTRATE 25 MG TAB PO SCH (08:17)
[2017-04-13] MEDS: LISINOPRIL 20 MG TAB PO SCH (08:17)
[2017-04-13] MEDS: MULTIVITAMIN TAB PO SCH (08:17)
[2017-04-13] MEDS: OXYCODONE HCL 10 MG TABCR (OXYCONTIN) PO SCH (08:17)
[2017-04-13] MEDS: PANTOprazole SOD 40 MG TAB PO SCH (08:18)
[2017-04-13] MEDS: OXYCODONE HCL IR 5 MG TAB (IMMEDIATE RELEASE) PO PRN ×2 (08:25→12:34)
--- NOTE | 2017-04-13 08:42 | Orthopedic Progress Note ---
Orthopedic Progress Note Date of Service Apr 13, 2017. Subjective Post OP Day: 2 Reports: feeling well, pain controlled w PO medications, Denies: complaints, chest pain, SOB, nausea / vomiting, light headedness, calf pain Additional Notes: STATES TYLENOL GIVES HIM INDIGESTION Objective calves soft nontender, N/V intact, capillary refill less than 2 sec., dressing C /D/I, A&O x3, toes mobile SILVERON IN TACT Date Time Temp Pulse Resp B/P (MAP) Pulse Ox O2 Delivery O2 Flow Rate FiO2 04/13/17 07:30 Room Air 04/13/17 06:25 36.6 75 16 119/69 (86) 95 Room Air 04/12/17 23:20 Room Air 04/12/17 23:01 36.6 70 18 120/76 (91) 94 Room Air 04/12/17 16:00 94 Room Air 04/12/17 15:14 36.5 72 18 148/79 (102) 94 Room Air 04/12/17 11:05 36.3 63 16 129/79 (96) 93 Room Air Assessment & Plan Assessment: POD #2, LEFT TKA Plan: PT/ OT DVT PROPH- ASA D/C PLANNING- HOME W HH TODAY D/C TYLENOL Inhouse Planning Pain Management: Oxycontin, Morphine, PO Tylenol, Oxy IR DVT Prophylaxis: TEDs, SCDs, ASA Discharge Planning Discharge Planning: home with home health Pain Management: Oxycontin, Oxy IR DVT Prophylaxis: TEDs, ASA Therapy: Physical Therapy, Occupational Therapy
[2017-04-13] MEDS ORDERED: ONDA8TAB6 PO (08:48)
[2017-04-13] MEDS ORDERED: RXC5 PO (08:48)
[2017-04-13] MEDS ORDERED: OXYSR10 PO (08:48)
[2017-04-13] MEDS ORDERED: ASPEC81 PO (08:48)
--- NOTE | 2017-04-13 08:49 | Discharge Instructions ---
Discharge Instructions Date of Service Apr 13, 2017. Admission Reason for Admission: Left Knee Osteoarthritis Discharge Discharge Diagnosis / Problem: left tka Discharge Goals Goal(s): Improve function Activity Recommendations Activity Limitations: as noted below . Instructions / Follow-Up Instructions / Follow-Up ACTIVITY RECOMMENDATIONS: SELF CARE INSTRUCTIONS AFTER TOTAL KNEE REPLACEMENT A. You may need to continue a physical therapy program after discharge from the hospital. There are several options available to you. Your doctor will assist you in selecting the best one for you. 1. An out-patient facility 2 to 3 times a week for therapy or home therapy. 2. Continue working on all exercises taught to you in the hospital. Your goals should be to increase bending of your knee to 90 degrees and beyond and to fully straighten your knee. B. You may progress at your own pace from walking with a walker or crutches to a cane; then to no assistive devices. C. Make walking a part of your daily routine. Be up as much as comfortable with rest periods throughout the day. Rest with leg elevation is very important. Use the ice wrap frequently for the first 3-4 weeks. D. There are no restrictions on activities. You may ride in a car, shop, participate in rope silica machine operator and all social activities. E. Wear the long elastic stockings (ADA hose) 20 hours a day for 2 weeks after surgery. They can be removed several times a day for laundering and for a bath. F. You may shower, no tub baths until cleared by your doctor. SPECIAL CARE INSTRUCTIONS: VERY IMPORTANT TO READ AND REVIEW A. There are a few signs you need to watch for after you are home. Call [facility] if you notice any of the followin. Increased severe knee pain. Some pain is expected especially when you exercise. 2. Increased swelling in your leg or knee; pain or swelling of the calf muscle in either lower leg. 3. Any fluid drainage from the incision. 4. Shortness of breath or chest pain. B. Please call [facility] at if you have any concerns or questions about your operation or recovery. The doctor or his nurse will return your call promptly. C. You must take antibiotics before dental work, bladder, bowel or other surgery. Your doctor will provide you with a permanent care to carry describing this precaution. IMPORTANT: * REMEMBER TO TAKE ASPIRIN, 81 MG, TWICE DAILY FOR 4 WEEKS UNLESS OTHERWISE DIRECTED. THIS IS YOUR BLOOD THINNER. * HIGH RISK PATIENTS MAY BE PRESCRIBED A STRONGER BLOOD THINNER. THIS WILL BE PROVIDED AT DISCHARGE. * CALL IF INCREASED PAIN, REDNESS, DRAINAGE OR FEVER GREATER THAT 101. * WEAR ADA HOSE 20 HOURS PER DAY FOR 2 WEEKS. * YOU MAY HAVE A LARGE BAND-AID LIKE DRESSING (SILVERON). THIS WILL REMAIN ON YOUR INCISION FOR 7 DAYS, THEN CAN BE REMOVED. IF INCISION IS LEAKING THROUGH DRESSING, CALL THE OFFICE . FOLLOW UP VISIT: If appointment is not already scheduled: Please call [facility] to make a follow-up appointment for 2 weeks after your surgery at . Current Hospital Diet Patient's current hospital diet: Regular Diet Discharge Diet Recommended Diet: Regular Diet Procedures Procedures Performed: Left Total Knee Arthroplasty Pending Studies Studies pending at discharge: no Laboratory Results Hemoglobin A1c Test 03/10/17 12:14 Range/Units Estimated Average Glucose 114 mg/dl Hemoglobin A1c 5.6 4.5-5.6 % Medical Emergencies . Who to Call and When: Medical Emergencies: If at any time you feel your situation is an emergency, please call 911 immediately. . Non-Emergent Contact Non-Emergency issues call your: Primary Care Provider . "Provider Documentation" section prepared by Cesar Encinas. . VTE Core Measure Inpt VTE Proph given/why not?: Other Anticoagulation (asa), T.E.D. Stockings, SCD's [place] Drug Monitoring Program Search Results: patient reviewed within database, no issues identified
[2017-04-13 09:01] VITALS: BP 119/69; PULSE 75; TEMP 36.6; O2SAT 95
[2017-04-13] MEDS: ASPIRIN 81 MG ECTAB PO SCH (09:04)
[2017-04-13] MEDS: DOCUSATE SODIUM 100 MG CAP PO SCH (09:04)
--- NOTE | 2017-04-21 13:47 | DISCHARGE SUMMARY ---
DISCHARGE DIAGNOSIS: Degenerative joint disease left knee. SECONDARY DIAGNOSES: Hypertension, history of shortness of breath with exertion, GERD. CONSULTS: None. COMPLICATIONS: None. PROCEDURES: Left total knee arthroplasty performed by Dr. Beckett on 04/11/2017. BRIEF HISTORY: As dictated in history and physical. HOSPITAL SUMMARY: The patient was admitted on the above-noted date and had the above-noted procedure performed which she tolerated well. On the first postoperative day, patient was feeling well and pain was controlled. Calves were soft, nontender, neurovascularly intact. Dressings clean, dry and intact. Toes were mobile. Vital signs were stable. He was afebrile. Hemoglobin was 13.7. The patient was started on physical therapy protocol and continued on DVT prophylaxis and pain management. By the second postoperative day he continued to be feeling well, pain was controlled. Did complain that Tylenol gives him indigestion and otherwise he had no other complaints. Calves were soft and nontender, neurovascularly intact. Dressings clean, dry and intact. Toes were mobile and vital signs were stable. He was afebrile. The rest of his stay was essentially uneventful and he was progressing with his physical therapy and it was felt he could be discharged to home with home health services on 04/13/2017. For further review, please see chart. LAB AND X-RAY DATA: As per chart. DISCHARGE INSTRUCTIONS: The patient was discharged to home in satisfactory condition on 04/13/2017. DIET: Regular. ACTIVITY: Follow TK instruction sheets and special care instructions as noted. Follow up with Dr. Beckett in 2 weeks. The patient to call for appointment if one has not been made for you. DISCHARGE MEDICATIONS: Aspirin 81 mg p.o. b.i.d., Zofran 8 mg p.o. q. 8 hours p.r.n. nausea, OxyContin 10 mg p.o. q. 12 hours, oxycodone 5-10 mg p.o. q. 4 hours p.r.n., resume taking lisinopril 20 mg p.o. q.a.m., meclizine 12.5 mg p.o. daily p.r.n., metoprolol 25 mg p.o. daily, Osteo Bi-Flex 2 tabs p.o. q.a.m., omeprazole 40 mg p.o. q.a.m. After 30 days stop taking aspirin twice daily and resume your once daily dosing.
== END 2017-04-13 12:43 | disposition home or self-care (01) | DRG 470 ==
LOC: C.ACU 08:21 → C.3E 10:00 → ENRESERV 14:08
PROVIDERS: ADMIT Orthopaedic Surgery; ATTEND Orthopaedic Surgery
PROC: 0SRD0KZ Replacement of Left Knee Joint with Nonautologous Tissue Substitute, Open Approach (ICD-10-PCS; principal; 2017-04-11 12:15)
DX: M17.12 Unilateral primary osteoarthritis, left knee (principal); I10 Essential (primary) hypertension; K21.9 Gastro-esophageal reflux disease without esophagitis; Z79.82 Long term (current) use of aspirin

== ENCOUNTER 2017-05-27 14:41 | Emergency (ER) | payer OTHER ==
[~2017-05-27] VITALS: Ht 172.7 cm; Wt 106.5 kg
[~2017-05-27 14:41] MED LIST changes: -ACETAMINOPHEN 500 MG TAB PO SCH; +ASPEC81 PO; -ASPI81TA28 PO; -CEFAZOLIN 2000 MG/60 ML D5W 60 ML IV SCH; -CeleBREX 200 MG CAP PO SCH; -DEXAMETHASONE 4 MG TAB PO SCH; -FAMOTIDINE 20 MG TAB PO SCH; -GABAPENTIN 300 MG CAP PO SCH; -LACTATED RINGER'S 1000ML 1,000 ML IV SCH; -LACTATED RINGER'S 1000ML 500 ML IV ONE; -LACTATED RINGER'S 1000ML IV SCH; -METO25TA56 PO; -METOCLOPRAMIDE HCL 10 MG TAB PO SCH; +ONDA8TAB6 PO; +OXYSR10 PO; -ROPIVACAINE 5MG/ML 30 ML 150 MG, BUPIVACAINE/EPINEPHR 0.5% MPF 30 ML, KETOROLAC TROMETH... INFIL SCH; +RXC5 PO
[2017-05-27 14:44] VITALS: TEMP 36.5; Ht 172.7 cm; Wt 106.5 kg
[2017-05-27 14:58] VITALS: O2SAT 95
[2017-05-27] MEDS ORDERED: SODIUM CHLORIDE 0.9% 1000ML 1,000 ML IV STA (15:13)
--- NOTE | 2017-05-27 15:20 | DIAGNOSTIC IMAGING REPORT ---
CHEST ONE VIEW PORTABLE HISTORY: 72 years-old Male tachycardia COMPARISON: Chest radiograph 03/28/2017 TECHNIQUE: Portable upright AP view of the chest FINDINGS: Cardiac silhouette is again enlarged. There is unchanged marked elevation of the left hemidiaphragm. No pneumothorax, pleural effusion or focal airspace consolidation. There is no overt pulmonary edema. Remote healed left midclavicular fracture is again seen. IMPRESSION: No acute cardiopulmonary process. The above report was generated using voice recognition software. It may contain grammatical, syntax or spelling errors. Electronically signed by: Israel Brown M.D. 05/27/2017 3:18 PM Dictated Date/Time: 05/27/2017 3:17 PM
--- NOTE | 2017-05-27 15:23 | EMERGENCY ROOM VISIT NOTE ---
History Report prepared by Isabella: Barrett Cooper Under the Supervision of: Dr. Sydney Booker M.D. First contact with patient: 14:57 Chief Complaint: TACHYCARDIA Stated Complaint: SVT (CARDIAC) Nursing Triage Summary: Weakness and dizziness. Patient came directly from doctors office due to near syncopal episodes. Patient experiencing SOB, no CP History of Present Illness The patient is a 72 year old male who presents to the Emergency Room with complaints of intermittent, throbbing sensation in neck starting a few months ago and worsening a few days ago. The patient has episodes with hot flashes radiating from neck to head, dizziness, lightheadedness, shortness of breath, and a throbbing sensation in neck. The episode lasts for about 3-4 seconds. He denies any pain when the episodes occur. He has symptom relief with lying down. The episodes usually happen while he is standing up or sitting. He normally does not have any difficulty breathing when he is not having the episodes. He was referred to the Emergency Room today by Dr. Navarro, sifter and miller with [facility]. The patient has a history of SVT and Mix's palsy. He takes a baby aspirin twice a day. He denies any stroke-like symptoms, pain/ tearing sensation in neck, chest pain, nausea, vomiting, abdominal pain, numbness, weakness, or any other complaints. Source of History: patient Onset: a few days ago Position: neck Symptom Intensity: No pain Quality: other (throbbing sensation ) Timing: intermittent, worsening Modifying Factors (Worsening): other (standing up or sitting) Modifying Factors (Relieving): other (lying down) Associated Symptoms: + SOB, No chest pain, No nausea, No vomiting, No abdominal pain, No weakness, No numbness Review of Systems See HPI for pertinent positives & negatives. A total of 10 systems reviewed and were otherwise negative. Past Medical & Surgical Medical Problems: (1) Hypertension (2) Left knee DJD Family History Cancer Heart disease Hypertension Social History Smoking Status: Never Smoker Marital Status: Housing Status: lives with significant other Occupation Status: employed Current/Historical Medications Scheduled Aspirin (Aspirin Ec), 81 MG PO QAM Lisinopril (Zestril), 20 MG PO QAM Misc Natural Products (Osteo Bi-Flex Advanced Do), 2 TAB PO QAM Omeprazole (Prilosec), 40 MG PO QAM Oxycodone HCl (Oxycontin), 10 MG PO Q12 Scheduled PRN Meclizine Hcl (Meclizine Hcl), 12.5 MG PO DAILY PRN for VERTIGO Ondansetron Hcl (Zofran), 8 MG PO Q8H PRN for Nausea Allergies Coded Allergies: No Known Allergies (Unverified , 05/27/17) Physical Exam Vital Signs Date Time Temp Pulse Resp B/P (MAP) Pulse Ox O2 Delivery O2 Flow Rate FiO2 05/27/17 17:44 71 17 151/96 95 Room Air 05/27/17 16:58 74 16 131/82 94 Room Air 05/27/17 15:04 93 05/27/17 15:02 96 109/70 82 116/70 109 109/59 05/27/17 14:58 95 Room Air 05/27/17 14:58 95 Room Air 05/27/17 14:44 36.5 67 17 111/68 94 Room Air Physical Exam Vital signs reviewed. General: Well-appearing, elderly, in no significant distress. HEENT: No scleral icterus, PERRLA, neck supple. Atraumatic. Cardiovascular: Regular rate. Occasional ectopy. Pulmonary: Clear to auscultation bilaterally, normal work of breathing. Abdomen: Obese. Soft, nontender, nondistended, positive bowel sounds. Musculoskeletal: Atraumatic. Minimal lower extremity edema but symmetric bilaterally. Neurologic: Patient awake alert and oriented x 3, full strength in all 4 extremities. Cranial nerves 2 through 12 grossly intact. Skin: Warm, dry, no rash Medical Decision & Procedures ER Provider Diagnostic Interpretation: X-ray results as stated below per interpretation by me and the radiologist: CHEST ONE VIEW PORTABLE HISTORY: 72 years-old Male tachycardia COMPARISON: Chest radiograph 03/28/2017 TECHNIQUE: Portable upright AP view of the chest FINDINGS: Cardiac silhouette is again enlarged. There is unchanged marked elevation of the left hemidiaphragm. No pneumothorax, pleural effusion or focal airspace consolidation. There is no overt pulmonary edema. Remote healed left midclavicular fracture is again seen. IMPRESSION: No acute cardiopulmonary process. The above report was generated using voice recognition software. It may contain grammatical, syntax or spelling errors. Electronically signed by: Israel Brown M.D. 05/27/2017 3:18 PM Dictated Date/Time: 05/27/2017 3:[address] and US results as stated below per my review and radiologist interpretation: ANGIOGRAPHY HEAD COMBO CLINICAL HISTORY: 72 years-old Male presenting with lightheadedness, right neck pulsating. TECHNIQUE: Multidetector CT of the head was performed before and after the administration of intravenous contrast. 3-D volumetric and/or maximum intensity projection (MIP) images were subsequently reconstructed for review. IV contrast: 116 mL of Optiray 320. A dose lowering technique was used consistent with the principles of ALARA (as low as reasonably achievable). COMPARISON: 12/08/2016. CT DOSE (mGy.cm): The estimated cumulative dose is 1039.22 mGy.cm. FINDINGS: Coat Maker topogram: Unremarkable. Initial noncontrast CT head demonstrates normal ventricular and sulcal size. Brain parenchyma normal with preservation of duque-white matter differentiation. No mass effect or midline shift. No evidence of major vascular territory infarct. No hemorrhage or extra-axial fluid collection. Paranasal sinuses and mastoid air cells clear. Calvarium intact. Postcontrast imaging in the angiographic phase demonstrates atherosclerosis of the bilateral internal carotid arteries without significant narrowing. Anterior circulation including the anterior and middle cerebral arteries patent. Anterior communicating artery patent. Posterior circulation demonstrates a left dominant vertebral artery. Superior cerebellar and posterior cerebral arteries patent. Right posterior communicating artery patent. Left posterior communicating artery is diminutive. No significant stenosis, occlusion, or aneurysm. IMPRESSION: 1. No acute intracranial pathology. 2. No acute stenosis, occlusion, or aneurysm in the intracranial vessels. Electronically signed by: Laron Levi M.D. 05/27/2017 5:06 PM Dictated Date/Time: 05/27/2017 4:59 PM NECK ANGIO WITH CONTRAST CLINICAL HISTORY: 72 years-old Male presenting with right neck pulsating sensation. TECHNIQUE: Multidetector CT of the neck was performed after the administration of intravenous contrast. 3-D volumetric and/or maximum intensity projection (MIP) images were subsequently reconstructed for review. IV contrast: 116 mL of Optiray 320. A dose lowering technique was used consistent with the principles of ALARA (as low as reasonably achievable). COMPARISON: None. CT DOSE (mGy.cm): The estimated cumulative dose is 1039.22 inclusive of the head CT. FINDINGS: Coat Maker topogram: Unremarkable. Three-vessel aortic arch. The origin of the right innominate is not fully included within the [id number] and cannot be evaluated. Mild atherosclerosis of the origin of the left subclavian artery without significant narrowing. Right common and internal carotid artery patent. Left common carotid artery with atherosclerosis at the carotid bulb. This does not significantly extend into the left internal carotid artery and does not cause significant stenosis (less than 25% per NASCET-like criteria). No significant stenosis, aneurysm, or occlusion. Left dominant vertebral artery with nonsignificant atherosclerosis. Origins and courses of the vertebral arteries patent. Multilevel soft tissues of the neck normal. No lymphadenopathy. Degenerative changes of the cervical spine. Polypoid mucosal thickening in the bilateral maxillary sinus is noted inferiorly. Mosaic attenuation at the lung apices may indicate small airways disease. IMPRESSION: Atherosclerosis. No significant stenosis, aneurysm, or occlusion of the cervical vessels. Electronically signed by: Laron Levi M.D. 05/27/2017 5:13 PM Dictated Date/Time: 05/27/2017 5:06 PM LEFT VENOUS DOPP LOWER EXT UNILAT CLINICAL HISTORY: 72 years-old Male presenting with LLE swelling, DVT, recent TKA. TECHNIQUE: Real-time grayscale and color and spectral Doppler ultrasound imaging of the veins of the left lower extremity was performed. Compression and augmentation were also utilized. COMPARISON: None. FINDINGS: Left: Common femoral vein: Patent. Femoral vein: Patent. Greater saphenous vein: Patent. Popliteal vein: Patent. Calf veins: Patent. Other: None. IMPRESSION: No evidence of deep venous thrombosis. Electronically signed by: Laron Levi M.D. 05/27/2017 3:57 PM Dictated Date/Time: 05/27/2017 3:56 PM Laboratory Results 05/27/17 15:26 Red Blood Count 4.75, Mean Corpuscular Volume 90.9, Mean Corpuscular Hemoglobin 29.7, Mean Corpuscular Hemoglobin Concent 32.6, Mean Platelet Volume 10.8, Neutrophils (%) (Auto) 55.1, Lymphocytes (%) (Auto) 27.0, Monocytes (%) (Auto) 13.3, Eosinophils (%) (Auto) 3.9, Basophils (%) (Auto) 0.6, Neutrophils # (Auto ) 5.40, Lymphocytes # (Auto) 2.64, Monocytes # (Auto) 1.30, Eosinophils # (Auto ) 0.38, Basophils # (Auto) 0.06 05/27/17 15:26 Test 05/27/17 15:26 05/27/17 15:33 White Blood Count 9.79 K/uL (4.8-10.8) Red Blood Count 4.75 M/uL (4.7-6.1) Hemoglobin 14.1 g/dL (14.0-18.0) Hematocrit 43.2 % (42-52) Mean Corpuscular Volume 90.9 fL (80-100) Mean Corpuscular Hemoglobin 29.7 pg (25-34) Mean Corpuscular Hemoglobin Concent 32.6 g/dl (32-36) Platelet Count 177 K/uL (130-400) Mean Platelet Volume 10.8 fL (7.4-10.4) Neutrophils (%) (Auto) 55.1 % Lymphocytes (%) (Auto) 27.0 % Monocytes (%) (Auto) 13.3 % Eosinophils (%) (Auto) 3.9 % Basophils (%) (Auto) 0.6 % Neutrophils # (Auto) 5.40 K/uL (1.4-6.5) Lymphocytes # (Auto) 2.64 K/uL (1.2-3.4) Monocytes # (Auto) 1.30 K/uL (0.11-0.59) Eosinophils # (Auto) 0.38 K/uL (0-0.5) Basophils # (Auto) 0.06 K/uL (0-0.2) RDW Standard Deviation 46.3 fL (36.4-46.3) RDW Coefficient of Variation 14.0 % (11.5-14.5) Immature Granulocyte % (Auto) 0.1 % Immature Granulocyte # (Auto) 0.01 K/uL (0.00-0.02) Prothrombin Time 11.4 SECONDS (9.0-12.0) Prothromb Time International Ratio 1.1 (0.9-1.1) Activated Partial Thromboplast Time 25.8 SECONDS (21.0-31.0) Partial Thromboplastin Ratio 1.0 Anion Gap 6.0 mmol/L (3-11) Est Creatinine Clear Calc Drug Dose 58.1 ml/min Estimated GFR () 58.6 Estimated GFR (Non- 50.5 BUN/Creatinine Ratio 23.1 (10-20) Calcium Level 8.7 mg/dl (8.5-10.1) Magnesium Level 1.9 mg/dl (1.8-2.4) Total Bilirubin 0.7 mg/dl (0.2-1) Direct Bilirubin 0.1 mg/dl (0-0.2) Aspartate Amino Transf (AST/SGOT) 23 U/L (15-37) Alanine Aminotransferase (ALT/SGPT) 25 U/L (12-78) Alkaline Phosphatase 68 U/L (45-117) Total Creatine Kinase 66 U/L (39-308) Creatine Kinase MB 1.0 ng/ml (0.5-3.6) Creatine Kinase MB Ratio 1.5 (0-3.0) Total Protein 7.2 gm/dl (6.4-8.2) Albumin 3.1 gm/dl (3.4-5.0) Thyroid Stimulating Hormone (TSH) 3.210 uIu/ml (0.300-4.500) Bedside Troponin I < 0.030 ng/ml (0-0.045) Laboratory results per my review. Medications Administered Medications (Trade) Dose Ordered Sig/Marianela Route Start Time Stop Time Status Last Admin Dose Admin Sodium Chloride 1,000 ml @ 125 mls/hr Q8H STAT IV 05/27/17 15:13 05/27/17 18:32 DC 05/27/17 15:13 125 MLS/HR ECG Indication: other (throbbing sensation in neck) Rate (beats per minute): 96 Rhythm: normal sinus Findings: no acute ischemic change, other (left anterior fascicular block; possible previous inferior infarct) ED Course 1457: Past medical records reviewed. The patient was evaluated in room B02. A complete history and physical examination was performed. 1513: Sodium Chloride 1000 ml @ 125 mls/hr IV 1740: Upon reevaluation, the patient appeared to have improvement of his symptoms. I discussed findings with him. He verbalized agreement of the treatment plan. He was discharged home. Medical Decision Differential diagnosis: Etiologies such as carotid abnormalities, stroke, premature contractions, electrolyte abnormality, cardiac dysrhythmia, thyroid dysfunction, pulmonary embolism, infection, gastrointestinal, as well as others were entertained. This patient was evaluated and appeared to be in no significant distress. IV access was obtained and laboratory work was drawn. Patient's physical exam is fairly unrevealing. He is found to be in a normal sinus rhythm at [address] angiogram of the head and neck was performed as the patient states it is a pulsatile sensation. This study is largely negative. It is read as above. Patient's laboratory work is unrevealing. He was advised of the findings. He will follow-up with his family care physician and sifter and miller for reevaluation. He will return to the ER for worsening of symptoms or any medical concerns. Medication Reconcilliation Current Medication List: was personally reviewed by me Blood Pressure Screening Patient's blood pressure: Normal blood pressure Impression Primary Impression: Neck pain on right side Additional Impression: Palpitations Scribe Attestation The scribe's documentation has been prepared under my direction and personally reviewed by me in its entirety. I confirm that the note above accurately reflects all work, treatment, procedures, and medical decision making performed by me. Departure Information Dispostion Home / Self-Care Referrals Nery Hernandez (PCP) Forms HOME CARE DOCUMENTATION FORM, IMPORTANT VISIT INFORMATION, WORK / SCHOOL INSTRUCTIONS Patient Instructions My [facility] Additional Instructions Diagnosis: Throbbing neck sensation Please continue medications as prescribed. Follow-up with your physician this week for reevaluation, he may require a Holter monitor. Return to the emergency department for worsening of symptoms or any medical concerns. Problem Qualifiers
[2017-05-27] MEDS ORDERED: ASPI81TA28 PO (15:25)
[2017-05-27] MEDS ORDERED: OPTIRAY 320 IV PRN (15:30)
[2017-05-27 15:51] LABS: BASO % 0.6 %; BASO ABS # 0.06 K/uL (0-0.2); COMPLETE YES; EOS % 3.9 %; HEMATOCRIT 43.2 % (42-52); IG% 0.1 %; LYMPH ABS # 2.64 K/uL (1.2-3.4); MEAN CELL VOLUME 90.9 fL (80-100); MEAN CORPUSCULAR HEMOGLOBIN 29.7 pg (25-34); MEAN CORPUSCULAR HGB CONC 32.6 g/dl (32-36); MEAN PLATELET VOLUME 10.8 fL (7.4-10.4); MONO % 13.3 %; NEUT % 55.1 %; PLATELET COUNT 177 K/uL (130-400); RED BLOOD COUNT 4.75 M/uL (4.7-6.1); WHITE BLOOD COUNT 9.79 K/uL (4.8-10.8)
--- NOTE | 2017-05-27 15:58 | DIAGNOSTIC IMAGING REPORT ---
LEFT VENOUS DOPP LOWER EXT UNILAT CLINICAL HISTORY: 72 years-old Male presenting with LLE swelling, DVT, recent TKA. TECHNIQUE: Real-time grayscale and color and spectral Doppler ultrasound imaging of the veins of the left lower extremity was performed. Compression and augmentation were also utilized. COMPARISON: None. FINDINGS: Left: Common femoral vein: Patent. Femoral vein: Patent. Greater saphenous vein: Patent. Popliteal vein: Patent. Calf veins: Patent. Other: None. IMPRESSION: No evidence of deep venous thrombosis. Electronically signed by: Laron Levi M.D. 05/27/2017 3:57 PM Dictated Date/Time: 05/27/2017 3:56 PM
[2017-05-27 16:05] LABS: INR 1.1 (0.9-1.1); PROTHROMBIN TIME (PATIENT) 11.4 SECONDS (9.0-12.0)
[2017-05-27 16:10] LABS: BUN/CREATININE RATIO 23.1 (10-20); CALCIUM 8.7 mg/dl (8.5-10.1); CREATININE 1.4 mg/dl (0.60-1.40); MAGNESIUM 1.9 mg/dl (1.8-2.4); POTASSIUM 4.2 mmol/L (3.5-5.1)
[2017-05-27 16:21] LABS: CKMB/CK RATIO 1.5 (0-3.0); THYROID STIMULATING HORMONE 3.21 uIu/ml (0.300-4.500)
--- NOTE | 2017-05-27 17:07 | DIAGNOSTIC IMAGING REPORT ---
ANGIOGRAPHY HEAD COMBO CLINICAL HISTORY: 72 years-old Male presenting with lightheadedness, right neck pulsating. TECHNIQUE: Multidetector CT of the head was performed before and after the administration of intravenous contrast. 3-D volumetric and/or maximum intensity projection (MIP) images were subsequently reconstructed for review. IV contrast: 116 mL of Optiray 320. A dose lowering technique was used consistent with the principles of ALARA (as low as reasonably achievable). COMPARISON: 12/08/2016. CT DOSE (mGy.cm): The estimated cumulative dose is 1039.22 mGy.cm. FINDINGS: Teacher Selection Specialist topogram: Unremarkable. Initial noncontrast CT head demonstrates normal ventricular and sulcal size. Brain parenchyma normal with preservation of duque-white matter differentiation. No mass effect or midline shift. No evidence of major vascular territory infarct. No hemorrhage or extra-axial fluid collection. Paranasal sinuses and mastoid air cells clear. Calvarium intact. Postcontrast imaging in the angiographic phase demonstrates atherosclerosis of the bilateral internal carotid arteries without significant narrowing. Anterior circulation including the anterior and middle cerebral arteries patent. Anterior communicating artery patent. Posterior circulation demonstrates a left dominant vertebral artery. Superior cerebellar and posterior cerebral arteries patent. Right posterior communicating artery patent. Left posterior communicating artery is diminutive. No significant stenosis, occlusion, or aneurysm. IMPRESSION: 1. No acute intracranial pathology. 2. No acute stenosis, occlusion, or aneurysm in the intracranial vessels. Electronically signed by: Laron Levi M.D. 05/27/2017 5:06 PM Dictated Date/Time: 05/27/2017 4:59 PM
--- NOTE | 2017-05-27 17:14 | DIAGNOSTIC IMAGING REPORT ---
NECK ANGIO WITH CONTRAST CLINICAL HISTORY: 72 years-old Male presenting with right neck pulsating sensation. TECHNIQUE: Multidetector CT of the neck was performed after the administration of intravenous contrast. 3-D volumetric and/or maximum intensity projection (MIP) images were subsequently reconstructed for review. IV contrast: 116 mL of Optiray 320. A dose lowering technique was used consistent with the principles of ALARA (as low as reasonably achievable). COMPARISON: None. CT DOSE (mGy.cm): The estimated cumulative dose is 1039.22 inclusive of the head CT. FINDINGS: [employer] Driver topogram: Unremarkable. Three-vessel aortic arch. The origin of the right innominate is not fully included within the [id number] and cannot be evaluated. Mild atherosclerosis of the origin of the left subclavian artery without significant narrowing. Right common and internal carotid artery patent. Left common carotid artery with atherosclerosis at the carotid bulb. This does not significantly extend into the left internal carotid artery and does not cause significant stenosis (less than 25% per NASCET-like criteria). No significant stenosis, aneurysm, or occlusion. Left dominant vertebral artery with nonsignificant atherosclerosis. Origins and courses of the vertebral arteries patent. Multilevel soft tissues of the neck normal. No lymphadenopathy. Degenerative changes of the cervical spine. Polypoid mucosal thickening in the bilateral maxillary sinus is noted inferiorly. Mosaic attenuation at the lung apices may indicate small airways disease. IMPRESSION: Atherosclerosis. No significant stenosis, aneurysm, or occlusion of the cervical vessels. Electronically signed by: Laron Levi M.D. 05/27/2017 5:13 PM Dictated Date/Time: 05/27/2017 5:06 PM
[2017-05-27 17:44] VITALS: BP 151/96; PULSE 71; O2SAT 95
== END 2017-05-27 18:02 | disposition home or self-care (01) ==
LOC: C.EDB 14:43
DX: M54.2 Cervicalgia (principal); R00.2 Palpitations; I10 Essential (primary) hypertension; M17.5 Other unilateral secondary osteoarthritis of knee; Z82.49 Family history of ischemic heart disease and other diseases of the circulatory system; Z79.82 Long term (current) use of aspirin; R60.0 Localized edema

== ENCOUNTER 2017-06-19 06:18 | Observation (INO) | payer OTHER ==
[~2017-06-19] VITALS: Ht 172.7 cm; Wt 103.1 kg
[2017-06-19] VITALS (15 sets, daily range): BP systolic 130–166; BP diastolic 87–103; PULSE 66–88; TEMP 36.3–36.7; O2SAT 92–97; Ht 172.7 cm; Wt 103.1 kg
[~2017-06-19 06:18] MED LIST changes: -ASPEC81 PO; +ASPI81TA28 PO; -RXC5 PO
[2017-06-19] MEDS ORDERED: METO25TA56 PO (06:51)
[2017-06-19] MEDS ORDERED: MECL1TAB42 PO (06:51)
[2017-06-19] MEDS ORDERED: OXYC-57 PO (06:51)
--- NOTE | 2017-06-19 07:31 | History & Physical Bridge Note ---
H&P Re-Evaluation Bridge Note: I have examined the patient, reviewed the History & Physical and in the interval since the performance of the History & Physical I have noted the following changes of clinical significance: continued symptoms well-documented SVTNo changes noted
--- NOTE | 2017-06-19 07:32 | Procedure Note ---
Pre-Mod Sedation Assessment General Date of Moderate Sedation: Jun 19, 2017. Vital Signs: Vital Signs Past 12 Hours Date Time Temp Pulse Resp B/P (MAP) Pulse Ox O2 Delivery O2 Flow Rate FiO2 06/19/17 07:00 36.3 88 18 153/103 97 Room Air Review Cardiovascular: regular rate, rhythm Pre-Sedation Airway Assessment Oral Cavity: Dentures Able to Visualize Vocal Cords: No Short Thick Neck: Yes Hx of Sleep Apnea: No Smoking Status: Never Smoker Mallampati Classification: Class III ASA Classification: Class III Procedure Planning Contraindications-for Mod Sed: None Yes Notes The planned sedation has been discussed with the patient and consent obtained. I have identified the patient, determined the appropriateness of sedation and have assessed the patient immediately prior to the procedure. All medicine(s) and interventions are by my order.
[2017-06-19] MEDS ORDERED: FENTANYL CITRATE INJ 50 MCG/1 ML 2 ML VIAL ONE ×2 (07:48→08:27)
[2017-06-19] MEDS ORDERED: MIDAZOLAM HCL 5 MG/ML 1 ML VIAL ONE ×2 (07:49→08:28)
[2017-06-19] MEDS ORDERED: ISOPROTERENOL 200 MCG / 50ML D5W IV ONE (08:37)
[2017-06-19] MEDS ORDERED: OXYCODONE/ACETAMINOPHEN 5-325 TAB PO PRN (10:30)
[2017-06-19] MEDS ORDERED: IV FLUIDS COMPLETED PRN (10:45)
[2017-06-19] MEDS ORDERED: MECLIZINE HCL 25 MG TAB PO PRN (12:15)
--- NOTE | 2017-06-19 14:23 | Procedure Note ---
Post-Mod Sedation Assessment General Date of Moderate Sedation Jun 19, 2017. Vital Signs: Vital Signs Past 12 Hours Date Time Temp Pulse Resp B/P (MAP) Pulse Ox O2 Delivery O2 Flow Rate FiO2 06/19/17 13:50 69 16 147/93 (111) 95 Room Air 06/19/17 13:20 71 16 153/92 (112) 96 Room Air 06/19/17 12:50 68 16 154/97 (116) 96 Room Air 06/19/17 12:20 72 16 153/90 (111) 96 Room Air 06/19/17 11:50 76 16 155/89 (111) 95 Room Air 06/19/17 11:35 74 16 145/91 (109) 96 Room Air 06/19/17 11:20 68 16 130/87 (101) 94 Room Air 06/19/17 11:18 36.6 67 16 144/93 96 Room Air 06/19/17 11:05 66 16 131/88 (102) 92 Room Air 06/19/17 10:50 36.6 67 16 144/93 (110) 96 Room Air 06/19/17 10:40 78 18 155/87 (109) 95 Room Air 06/19/17 10:30 82 18 152/88 (109) 99 Room Air 06/19/17 10:25 85 18 158/105 (122) 99 Room Air 06/19/17 10:20 73 16 146/103 (117) 100 Mask 3 06/19/17 10:15 81 16 139/91 (107) 100 Mask 3 06/19/17 07:00 36.3 88 18 153/103 97 Room Air Review - Discharge Criteria Vital Signs Stable: Yes Alert/Oriented/Conversant: Yes Returned to Baseline Mental St: Yes Nausea Absent/Minimal: Yes Pain/Discomfort/Absent/Minimal: Yes Normal/Baseline Respirations: Yes Active Bleeding?: No Pt Received D/C Instructions: N/A Prescriptions Given: None Specific Proced. D/C Criteria Distal Pulses Present (Cardiac: N/A Groin site assessed-Card Cath: Yes Voided Prior To Discharge: Yes Discharged Patients Adult Escort/Transportation: N/A
--- NOTE | 2017-06-19 14:26 | Discharge Instructions ---
Discharge Instructions Procedure Procedure Date: Jun 19, 2017. Reason for Visit: Svt * To Do*. Discharge Discharge Date: Jun 19, 2017. Discharge Diagnosis: SVT Last Recorded Wt (Kilograms): 105.000 Medications Stopped Medication(s): Metoprolol Anesthesia Post Anesthesia Instructions: If you have had General Anesthesia or IV Sedation: * Do not drive today. * Resume driving when surgeon permits. * Do not make important decisions or sign legal documents today. * Call surgeon for: 1. Temperature elevations greater than 101 degrees F. 2. Uncontrollable pain. 3. Excessive bleeding. 4. Persistent nausea and vomiting. 5. Medication intolerance (nausea, vomiting or rash). * For nausea and vomiting use only clear liquids such as: tea, soda, bouillon until nausea subsides, then gradually increase diet as tolerated. * If you have any concerns or questions, call your surgeon's office. If physician is unavailable and it is an emergency, call 911 or go to the nearest emergency room. Instructions Activity Recommendations: limitations as noted below, driving or machine use limit Return to School/Work: with the following limitations Recommended Home Diet: low sodium Allergies: Coded Allergies: No Known Allergies (Unverified , 05/27/17) Provider Instructions No lifting >10# or straining for 5 days. No driving for 24 hours. Follow Up Additional Instructions: f/u with Ramon, cardiology clinic in 1 month [facility] Recommendations: Call your doctor if: * Temperature above 101 degrees * Pain not relieved by pain medicine ordered * There is increased drainage or redness from any incision * You have any unanswered questions or concerns. Your Doctors Instructions noted above were prepared by provider Sy Navarro. Patient Signature Section: Patient Instructions Signature Page Dottie Akbar Patient (or Guardian) Signature/Date: I have read and understand the instructions given to me by my caregivers. Caregiver/RN/Doctor Signature/Date: The above-named patient and/or guardian has received patient instructions on this date. + Original Patient Signature Page (only) stays with chart. Please make copy for patient.
--- NOTE | 2017-06-19 14:30 | Cardiology Procedure Brief Nt ---
Preliminary Cardiology Note Procedure Date Jun 19, 2017. Pre-Procedure Diagnosis SVT Post-Procedure Diagnosis AVNRT/SVT Procedure(s) Performed EPS and ablation. Patient had inducible AVNRT. Slow pathway modification performed with transient complete heart block during energy delivery. Patient had return of normal conduction within one minute. He later developed frequent and sustained atrial fibrillation which prevented repeat EPS. Program Director [employer] Ramon [employer] Service Mechanic(s) None Estimated Blood Loss 10cc Medication(s) Versed, fentanyl, isoproterenol Preliminary Findings Inducible AVNRT Transient heart block atrial fibrillation Recommendations Will monitor overnight. Discontinue metoprolol. Plan D/C in AM Specimens None Complication(s) Transient complete heart block. Disposition PCU
[2017-06-19] MEDS: LANSOPRAZOLE SOLUTAB 30 MG PO SCH (21:04)
[2017-06-19] MEDS: ACETAMINOPHEN 325 MG TAB PO PRN (21:05)
[2017-06-20 03:36] VITALS: BP 164/99; PULSE 67; TEMP 36.6; O2SAT 96
[2017-06-20 06:56] VITALS: BP 146/94; PULSE 68; TEMP 36.7; O2SAT 95
[2017-06-20] MEDS: LANSOPRAZOLE SOLUTAB 30 MG PO SCH (07:44)
[2017-06-20] MEDS: ACETAMINOPHEN 325 MG TAB PO PRN (07:47)
[2017-06-20 08:40] VITALS: BP 146/94; PULSE 68; TEMP 36.7; O2SAT 95
[2017-06-20] MEDS ORDERED: ASPIRIN 81 MG ECTAB PO SCH (09:00)
[2017-06-20] MEDS ORDERED: LISINOPRIL 20 MG TAB PO SCH (09:00)
--- NOTE | 2017-06-20 12:01 | Discharge Summary ---
Discharge Summary Admission Date: Jun 19, 2017 at 10:22 Discharge Date: Jun 20, 2017 Discharge Disposition: Home Primary Diagnosis: SVT Secondary Diagnoses/Problems: Medical Problems: (1) Mix's palsy Status: Acute (2) Neck pain on right side Status: Acute (3) Palpitations Status: Acute (4) Paroxysmal SVT (supraventricular tachycardia) Status: Acute Procedures: Electrophysiologic testing and ablation of SVT Discharge Instructions Last Recorded Wt (Kilograms): 103.100 Activity Recommendations: limitations as noted below, driving or machine use limit Return to School/Work: no limitations Diet At Discharge: resume previous diet Allergies: Coded Allergies: No Known Allergies (Unverified , 05/27/17) Discharge Medications: See medical reconciliation Home Health Services: none Special Care: Call your doctor if: * Temperature above 101 degrees * Pain not relieved by pain medicine ordered * There is increased drainage or redness from any incision * You have any unanswered questions or concerns. Avoid all tobacco products. If you need help to stop smoking, call [place]'s FREE QUITLINE at . This is a free call. Admission HPI Patient with documented history of symptomatic SVT presents for electrophysiologic testing and possible ablation. Hospital Course Patient was admitted and underwent the aforementioned procedure on the day of his admission. 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 During modification of the slow pathway the patient did have transient complete heart block lasting several seconds. Subsequent to ablation he also developed frequent and sustained periods of atrial fibrillation. He has episodes persisted despite discontinuation of isoproterenol and removal of the catheters. As result of the atrial fibrillation incomplete testing was performed subsequent to ablation. Due to the transient heart block the patient was monitored overnight. He had no additional issues with AV joselito conduction. There was no recurrent atrial fibrillation once he arrived on the [place]. There were no episodes of SVT subsequent to ablation. There were no episodes of heart block on telemetry. He felt well on the day of discharge. There is no evidence of complication. Total time spent on discharge = This includes examination of the patient, discharge planning, medication reconciliation, and communication with other providers.
--- NOTE | 2017-06-20 13:11 | Procedure Note ---
Procedure Note Date of Service Jun 19, 2017. Procedure Note Procedure performed: Ablation of supraventricular tachycardia, complete electrophysiologic testing including pacing from left atrium via the coronary sinus, ultrasound-guided vascular access, mapping of tachycardia sites using a roving catheter, arrhythmia induction using programmed stimulation on and off isoproterenol Staff shoe polisher: Reyes Navarro Indication: Patient is a 72-year-old gentleman with a well documented history of SVT and symptoms associated with the arrhythmia. He presents today for evaluation of possible ablation The patient was informed of the risks benefits and alternatives to the intended procedure. He understood such which proceed. He is brought to the electrophysiology suite in a fasting state. Conscious sedation was administered per protocol and the patient was monitored electrocardiographically throughout today's procedure. The right groin and right neck areas were prepped and draped in the usual sterile fashion the right internal jugular vein was subsequently access using modified Seldinger technique under ultrasound guidance and a 6 Czech venous sheath was placed at the site over guidewire. Right femoral vein was accessed 3 times using modified Seldinger technique and sheaths were placed over guidewires at this site. The sheaths were used to facilitate passage of the EP catheters to the respective chambers under fluoroscopic guidance. This included right ventricular, coronary sinus and his bundle catheters. The patient's baseline conduction system was characterized. This point standard pacing maneuvers were employed in order to induce an arrhythmia. Once the arrhythmia was induced the nature of the arrhythmia was characterized. Once these elements were known ablation catheter was advanced to the area of interest in tachycardia sites mapped radiofrequency lesions were placed with good power and temperature and so the tachycardia was no longer inducible. Subsequent to ablation the patient' s baseline conduction intervals were again measured. Repeat electrophysiologic testing and arrhythmia induction was then performed on and off isoproterenol prior to conclusion of the case. At the conclusion of the procedure the sheaths and catheters were removed. Hemostasis was achieved at the access sites using manual pressure. Patient tolerated the procedure well there were no immediate complications. Findings: Baseline intracardiac intervals Cycle length in the atrium 828ms Cycle length in the ventricle 824ms KS interval 194ms QRS duration 84ms QT interval 338ms Corrected QT interval 372ms AH interval 86ms HV interval 48ms Av Wenckebach occurred at 330ms VA Wenckebach occurred at 330ms The effective refractory period of the AV node was 270ms Tachycardia: The tachycardia cycle length was 328ms The VA time was 0 Ablation: A standard 7 Czech 4 millimeter radiofrequency ablation catheter was advanced to the area of interest and tachycardia sites mapped. Radiofrequency lesions place with good power and temperature. Multiple junctional beats were obtained during RF application. Post ablation intervals: Post ablation the patient had frequent and sustained episodes of atrial fibrillation which rendered repeat electrophysiologic testing impossible. Av Wenckebach occurred at 400ms Impression: Ablation of the slow inputs to the AV node. Transient complete heart block Frequent and sustained atrial fibrillation at the conclusion the procedure which prevented thorough re-evaluation
== END 2017-06-20 09:10 | disposition home or self-care (01) ==
LOC: C.EP 06:18 → ENRESERV 09:47 → C.2T 10:22
PROVIDERS: ADMIT Internal Medicine Clinical Cardiac Electrophysiology; ATTEND Internal Medicine Clinical Cardiac Electrophysiology
DX: I47.1 Supraventricular tachycardia (principal); I44.2 Atrioventricular block, complete; M54.2 Cervicalgia; G51.0 Bell's palsy; R00.2 Palpitations; I10 Essential (primary) hypertension; M19.90 Unspecified osteoarthritis, unspecified site; K21.9 Gastro-esophageal reflux disease without esophagitis; E66.9 Obesity, unspecified; R42 Dizziness and giddiness; Z79.899 Other long term (current) drug therapy; Z79.82 Long term (current) use of aspirin